=== PATIENT | male | born 1975 | race Caucasian/White ===

== ENCOUNTER 2016-08-11 11:21 | Inpatient (IN) | payer OTHER ==
[~2016-08-11] VITALS: Ht 177.8 cm; Wt 85.5 kg
[~2016-08-11 11:21] MED LIST: Azithromycin PO; CLN150C PO
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
[2016-08-11] MEDS ORDERED: LIDOCAINE 2% 20 ML (XYLOCAINE) VIAL ONE (11:39)
[2016-08-11] MEDS ORDERED: fentaNYL INJECTION 100 MCG/2 ML AMP IVP ONE (11:45)
[2016-08-11] MEDS ORDERED: IOHEXOL 350 MG/ML 100 ML (OMNIPAQUE 350) VIAL IV ONE (11:45)
[2016-08-11] MEDS ORDERED: DEXAMETHASONE PF 10 MG/ML (DECADRON) VIAL IV ONE (11:45)
[2016-08-11] MEDS ORDERED: NS 100 ML (IVPB) BAG IV ONE (11:45)
[2016-08-11] MEDS ORDERED: CLINDAMYCIN INJECTION 900 MG in NS (IVPB) 50 ML IV ONE (11:45)
[2016-08-11] MEDS ORDERED: LIDOCAINE/EPI 1%-1:100,000 (XYLOCAINE) 20ML INJ ONE (11:45)
[2016-08-11 11:46] LABS: BASOPHILS % (AUTO) 0 % (0-10); EOSINOPHILS % (AUTO) 0 % (0-10); LYMPHOCYTES # (AUTO) 1.9 X 10^3 (1.0-4.0); LYMPHOCYTES % (AUTO) 9 % (12-44); MEAN CORPUSCULAR HEMOGLOBIN 33 PG (25-34); MEAN CORPUSCULAR HGB CONC 35 G/DL (32-36); MEAN CORPUSCULAR VOLUME 94 FL (80-99); MEAN PLATELET VOLUME 10.6 FL (7.4-10.4); MONOCYTES # (AUTO) 1.5 X 10^3 (0.0-1.0); MONOCYTES % (AUTO) 7 % (0-12); NEUTROPHILS # (AUTO) 17.6 X 10^3 (1.8-7.8); NEUTROPHILS % (AUTO) 84 % (42-75); PLATELET COUNT 175 10^3/uL (130-400); RED BLOOD COUNT 5.16 10^6/uL (4.35-5.85); RED CELL DISTRIBUTION WIDTH 14.2 % (10.0-14.5); WHITE BLOOD COUNT 21.1 10^3/uL (4.3-11.0)
[2016-08-11 12:04] LABS: ANION GAP 13 MMOL/L (5-14); BLOOD UREA NITROGEN 7 MG/DL (7-18); BUN/CREATININE RATIO 9; CARBON DIOXIDE 20 MMOL/L (21-32); CHLORIDE 105 MMOL/L (98-107); CREATININE SERUM 0.81 MG/DL (0.60-1.30); GFR ESTIMATED > 60; GLUCOSE 170 MG/DL (70-105); POTASSIUM 3.5 MMOL/L (3.6-5.0); SODIUM 138 MMOL/L (135-145)
[2016-08-11 12:09] LABS: BASOPHILS % (MANUAL) 1 %; LYMPHOCYTES % (MANUAL) 2 %; NEUTROPHILS % (MANUAL) 89 %
--- NOTE | 2016-08-11 12:31 | Diagnostic Imaging Report ---
PROCEDURE: CT neck soft tissue with contrast. TECHNIQUE: Multiple contiguous axial images were obtained through the neck after the administration of contrast. INDICATION: Right jaw swelling. Difficulty breathing. CONTRAST: 75 mL of Omnipaque 350 is administered intravenously. FINDINGS: There is a significant enhancement and soft tissue swelling in the right tonsils and peritonsillar area obliterating the normal fat in the right paravertebral space and is associated with extensive inflammatory changes extending to the surrounding tissues including the superficial tissues around the right jaw. The findings are associated with the lucencies around multiple teeth bilaterally but appear to be worse along the molar lower teeth on the right side. In the central aspect of the right peritonsillar abnormality, there is a 3 x 1.7 x 3.4 cm hypodense area with irregular margins, however without a walled off enhancing surrounding tissue seen. This is suggestive of early abscess formation within the phlegmon. The mass effect from the right peritonsillar process narrows the oropharynx and displaces it to the left. Also the inflammation extends to and obliterates the right pyriformis sinus. There is displacement of the larynx and hypopharynx to the left due to the inflammatory process extending to the lower aspect of the neck as well. There is a 2 x 1.5 x 2 cm fluid collection area that appears to be based on the skin as well in the lateral aspect of the neck on the right side just above the hyoid bone level. This may relate to a sebaceous cyst. The surrounding inflammation could be from the process in the peritonsillar region or related to infection in it. Correlate clinically. The thyroid gland is normal. There are minimally prominent reactive lymph nodes along the upper right cervical chain. The parotid and submandibular glands and the thyroid gland appear grossly unremarkable. There are prominent emphysematous changes in the lung apices. The visualized portions of the paranasal sinuses demonstrate mild mucosal thickening in the right maxillary sinus and mucosal thickening also of mild degree in the ethmoidal air cells seen. IMPRESSION: 1. There is a very large area of inflammation and swelling centered in the right peritonsillar region with central hypodensity suggestive of a phlegmon with early stage of abscess formation. There is overall significant mass effect. 2. Poor dentition with multiple teeth erosions are seen, possibly representing the source of the infection. 3. A 2 cm subcutaneous fluid distended lesion along the lateral aspect of the right side of the neck, may relate to a sebaceous cyst. 4. Prominent emphysema changes in the lung apices. Dictated by: Dictated on workstation # [id number]
[2016-08-11] MEDS ORDERED: CEFUROXIME INJECTION 1,500 MG in NS (IVPB) 50 ML IV ONE (13:00)
[2016-08-11] MEDS ORDERED: CATHETER FLUSH 10 ML SYR IV PRN (14:30)
[2016-08-11] MEDS ORDERED: fentaNYL INJECTION 100 MCG/2 ML AMP IV PRN (14:30)
[2016-08-11] MEDS ORDERED: IBUP-2055 PO (14:31)
[2016-08-11 15:04] VITALS: BP 137/93
[2016-08-11] MEDS: NS IV 1000 ML 1,000 ML IV SCH (15:06)
[2016-08-11] MEDS: NICOTINE 21 MG (NICODERM) PATCH TD SCH (15:06)
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
[2016-08-11 17:02] VITALS: BP 150/89
[2016-08-11] MEDS: DEXAMETHASONE PF 10 MG/ML (DECADRON) VIAL IV SCH (18:43)
[2016-08-11 20:35] VITALS: BP 146/95
[2016-08-11] MEDS: CEFUROXIME 1.5 GM/NS 50 ML IVPB IV SCH ×2 (22:26)
[2016-08-11] MEDS: CLINDAMYCIN 900 MG/NS 50 ML IVPB IV SCH ×2 (22:59)
[2016-08-12] VITALS (7 sets, daily range): BP systolic 136–155; BP diastolic 79–96
[2016-08-12] MEDS: DEXAMETHASONE PF 10 MG/ML (DECADRON) VIAL IV SCH ×2 (00:20→07:03)
[2016-08-12] MEDS: NS IV 1000 ML 1,000 ML IV SCH ×3 (00:21→17:42)
[2016-08-12 04:27] LABS: BASOPHILS % (AUTO) 0 % (0-10); EOSINOPHILS % (AUTO) 0 % (0-10); LYMPHOCYTES # (AUTO) 0.9 X 10^3 (1.0-4.0); LYMPHOCYTES % (AUTO) 5 % (12-44); MEAN CORPUSCULAR HEMOGLOBIN 33 PG (25-34); MEAN CORPUSCULAR HGB CONC 35 G/DL (32-36); MEAN CORPUSCULAR VOLUME 94 FL (80-99); MEAN PLATELET VOLUME 10.7 FL (7.4-10.4); MONOCYTES # (AUTO) 0.4 X 10^3 (0.0-1.0); MONOCYTES % (AUTO) 2 % (0-12); NEUTROPHILS # (AUTO) 18.2 X 10^3 (1.8-7.8); NEUTROPHILS % (AUTO) 93 % (42-75); PLATELET COUNT 181 10^3/uL (130-400); RED BLOOD COUNT 4.91 10^6/uL (4.35-5.85); RED CELL DISTRIBUTION WIDTH 14.3 % (10.0-14.5); WHITE BLOOD COUNT 19.5 10^3/uL (4.3-11.0)
[2016-08-12] MEDS: CLINDAMYCIN 900 MG/NS 50 ML IVPB IV SCH ×6 (06:35→21:59)
[2016-08-12] MEDS: CEFUROXIME 1.5 GM/NS 50 ML IVPB IV SCH ×6 (07:03→23:51)
--- NOTE | 2016-08-12 07:03 | Progress Note-Standard ---
Standard Progress Note Progress Notes/Assess & Plan Date Seen by Provider: Aug 12, 2016 Time Seen by Provider: 07:00 Progress/Assessment & Plan ENT-Sudhakar Doing better Able to open his mouth better and less pain on right wants to go home so he can go back to work wbc-19.5 which is down alittle from 21.1 x-ray reviewed-large area mostly phlegmon yesterday-it could develop into a drainable abscess OP-minimal trismus this am right neck-less swollen and nontender this am IMP Right Peritonsillar abscess Right neck andenopathy -improved Rec: 1. would be best to have at least 24 more hours of IV antibitoics and steroids before going home 2. t here is a chance he may need to havae the area opened up again once more abscess matures 3. dieet as mary today 4. I did leavae prescriptions in chart for ceftin and prednisione taper in case he decides to leave [place] at least he will have prescriptions 5. will follow up in am Final Diagnosis right peritonsillar abscess KWADWO GAUTHIER MD Aug 12, 2016 7:03 am
[2016-08-12] MEDS: NICOTINE 21 MG (NICODERM) PATCH TD SCH ×2 (09:25→09:36)
[2016-08-12] MEDS: NICOTINE PATCH REMOVAL TP SCH (09:36)
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
[2016-08-12] MEDS: BENZOCAINE 20% SPRAY (HURRICANE) 60 ML CAN MT PRN ×2 (12:54→15:50)
[2016-08-12] MEDS: DEXAMETHASONE 4 MG/ML SDV (DECADRON) IV SCH ×2 (14:39→21:58)
[2016-08-13] VITALS: BP 145/82
[2016-08-13] MEDS: NS IV 1000 ML 1,000 ML IV SCH ×2 (02:47→08:48)
--- NOTE | 2016-08-13 06:27 | Progress Note-Standard ---
Standard Progress Note Progress Notes/Assess & Plan Date Seen by Provider: Aug 13, 2016 Time Seen by Provider: 06:15 Progress/Assessment & Plan ENT-Sudhakar Doing better Able to open his mouth better and less pain on right wants to go home so he can go back to work wbc-19.5 which is down alittle from 21.1 x-ray reviewed-large area mostly phlegmon yesterday-it could develop into a drainable abscess OP-minimal trismus this am right neck-less swollen and nontender this am IMP Right Peritonsillar abscess Right neck andenopathy -improved Rec: 1. would be best to have at least 24 more hours of IV antibitoics and steroids before going home 2. t here is a chance he may need to havae the area opened up again once more abscess matures 3. dieet as mary today 4. I did leavae prescriptions in chart for ceftin and prednisione taper in case he decides to leave [facility] at least he will have prescriptions 5. will follow up in am 7/5-Arshad Doing much better this am less pain and less swelling op-no trismus right tonsillar region still mildly swollen but much improved no pus to drain at this time Fine to send home from my standpint I left rx's in chart for ceftin and pred taper as well as a note for work [id number] retrun if symptoms bounce back KWADWO ARSHAD MD Aug 13, 2016 6:27 am
[2016-08-13] MEDS: CLINDAMYCIN 900 MG/NS 50 ML IVPB IV SCH ×2 (06:49)
[2016-08-13] MEDS: DEXAMETHASONE 4 MG/ML SDV (DECADRON) IV SCH (06:49)
[2016-08-13] MEDS: CEFUROXIME 1.5 GM/NS 50 ML IVPB IV SCH ×2 (07:31)
[2016-08-13 08:04] VITALS: BP 138/85
[2016-08-13] MEDS: NICOTINE 21 MG (NICODERM) PATCH TD SCH (08:50)
[2016-08-13] MEDS: NICOTINE PATCH REMOVAL TP SCH (08:50)
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
[2016-08-13] MEDS ORDERED: HYDR-3812 PO (11:01)
[2016-08-13] MEDS ORDERED: PRED10TA22 PO (11:01)
[2016-08-13] MEDS ORDERED: CEFU250T80 PO (11:01)
== END 2016-08-13 11:35 | disposition home or self-care (01) | DRG 134 ==
LOC: EDUNIT# 11:21 → ER 11:24 → 4TH 12:56
PROVIDERS: ADMIT Internal Medicine; ATTEND Internal Medicine
PROC: 0C9PXZZ Drainage of Tonsils, External Approach (ICD-10-PCS; principal; 2016-08-11)
DX: J36 Peritonsillar abscess (principal); R59.0 Localized enlarged lymph nodes; K02.9 Dental caries, unspecified; F17.210 Nicotine dependence, cigarettes, uncomplicated; K21.9 Gastro-esophageal reflux disease without esophagitis; F32.9 Major depressive disorder, single episode, unspecified
CPT/HCPCS: 36415; 70491; 80048; 83605; 85007; 85025; 85027; 87040; 87070; 87205; 96365; 96375

== ENCOUNTER 2017-07-06 11:58 | Emergency (ER) | payer SELFPAY ==
[~2017-07-06] VITALS: Ht 175.3 cm; Wt 81.8 kg
[~2017-07-06 11:58] MED LIST changes: +ACHD5005 PO; +CEFU250T80 PO; +IBUP-2055 PO; +PRED10TA22 PO
[2017-07-06] MEDS ORDERED: KETOROLAC 60 MG/2 ML VIAL IM STA (12:54)
[2017-07-06] MEDS ORDERED: ORPHENADRINE 60 MG/2 ML (NORFLEX) AMP IM STA (12:54)
--- NOTE | 2017-07-06 13:24 | Diagnostic Imaging Report ---
PROCEDURE: CT lumbar spine without contrast. TECHNIQUE: Multiple contiguous axial images were obtained through the lumbar spine without the use of intravenous contrast. Sagittal and coronal reformations were then performed. INDICATION: Back pain. There are no previous CT examinations available for comparison. The plain film examination of the lumbar spine performed on 01/31/2013 failed to show any sign of an acute abnormality. FINDINGS: The parasagittal images show the vertebral body heights and alignment to be within normal limits and similar to the prior plain film exam. The intervertebral spaces are well-maintained. There is a disc bulge eccentric to the left at L4-5. The disc indents the left ventral aspect of the thecal sac and narrows the AP diameter to 9.7 mm. The disc is in proximity to the origin of the exiting left nerve root. There is also a disc bulge eccentric to the left at L5-S1. There is no evidence for central stenosis at this level but the disc material does narrow the posterolateral recess on the left at L5-S1. The remainder of the lumbar spine is unremarkable for a high-grade central stenosis. There is no sign of a fracture or of a destructive lesion. There is no paraspinal mass identified. IMPRESSION: 1. There is no evidence for an acute bony abnormality. 2. There is degenerative disc disease at L4-5 and L5-S1. There is borderline central stenosis at L4-5 and the disc material is in proximity to the origin of the exiting left nerve root. There is no evidence for central stenosis at L5-S1 but there is narrowing of the neural foramen on the left due to the disc bulge. If further imaging is desired, then MRI would be recommended. Dictated by: Dictated on workstation # [id number]
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
[2017-07-06] MEDS ORDERED: ACHD5005 PO (13:37)
[2017-07-06] MEDS ORDERED: CYCL10TA9 PO (13:37)
[2017-07-06] MEDS ORDERED: PRD20T PO (13:37)
[2017-07-06 13:47] VITALS: BP 144/90
== END 2017-07-06 13:47 | disposition home or self-care (01) ==
LOC: EDUNIT# 11:58 → ER 12:00
DX: M54.16 Radiculopathy, lumbar region (principal); F32.9 Major depressive disorder, single episode, unspecified; J42 Unspecified chronic bronchitis; K21.9 Gastro-esophageal reflux disease without esophagitis; F12.90 Cannabis use, unspecified, uncomplicated; Z86.19 Personal history of other infectious and parasitic diseases; Z87.81 Personal history of (healed) traumatic fracture; Z79.52 Long term (current) use of systemic steroids; Z88.0 Allergy status to penicillin
CPT/HCPCS: 72131; 96372

== ENCOUNTER 2017-10-26 23:44 | Emergency (ER) | payer SELFPAY ==
[~2017-10-26] VITALS: Ht 172.7 cm; Wt 83.9 kg
[~2017-10-26 23:44] MED LIST changes: +CYCL10TA9 PO; +PRD20T PO
[2017-10-27] MEDS ORDERED: fentaNYL INJECTION 100 MCG/2 ML AMP IVP STA (01:05)
[2017-10-27] MEDS ORDERED: NS IV 1000 ML 1,000 ML IV STA (01:05)
[2017-10-27] MEDS ORDERED: KETOROLAC 30 MG/ML VIAL IVP STA (01:05)
[2017-10-27] MEDS ORDERED: ONDANSETRON 4 MG/2 ML (SDV) Z0FRAN IVP ONE (01:15)
[2017-10-27 01:20] LABS: BASOPHILS # (AUTO) 0.1 10^3/uL (0.0-0.1); BASOPHILS % (AUTO) 0 % (0-10); EOSINOPHILS # (AUTO) 0.6 10^3/uL (0.0-0.3); EOSINOPHILS % (AUTO) 3 % (0-10); HEMATOCRIT 45 % (40-54); HEMOGLOBIN 16.8 G/DL (13.3-17.7); LYMPHOCYTES # (AUTO) 1.8 X 10^3 (1.0-4.0); LYMPHOCYTES % (AUTO) 9 % (12-44); MEAN CORPUSCULAR HEMOGLOBIN 35 PG (25-34); MEAN CORPUSCULAR HGB CONC 37 G/DL (32-36); MEAN CORPUSCULAR VOLUME 94 FL (80-99); MEAN PLATELET VOLUME 10.3 FL (7.4-10.4); MONOCYTES % (AUTO) 5 % (0-12); NEUTROPHILS % (AUTO) 83 % (42-75); PLATELET COUNT 187 10^3/uL (130-400); RED BLOOD COUNT 4.79 10^6/uL (4.35-5.85); RED CELL DISTRIBUTION WIDTH 13.2 % (10.0-14.5); WHITE BLOOD COUNT 19.5 10^3/uL (4.3-11.0)
[2017-10-27 01:30] LABS: BILIRUBIN,URINE 1+ (NEGATIVE); CLARITY,URINE VERY CLOUDY; COLOR,URINE RED; GLUCOSE, URINE (UA) NEGATIVE (NEGATIVE); KETONES,URINE 1+ (NEGATIVE); LEUKOCYTE ESTERASE ,URINE 1+ (NEGATIVE); NITRITE,URINE NEGATIVE (NEGATIVE); PH,URINE 5 (5-9); PROTEIN,URINE 3+ (NEGATIVE); UROBILINOGEN,URINE 4 MG/DL (NORMAL)
[2017-10-27 01:36] LABS: BACTERIA,URINE LARGE /HPF; WBC,URINE 0-2 /HPF
[2017-10-27 01:37] LABS: AMORPHOUS SEDIMENT,UR MOD AMOR URATES /LPF; CALCIUM OXALATE CRYSTALS,UR FEW /LPF; SQUAMOUS EPITHELIAL CELL,UR RARE /HPF
[2017-10-27 01:41] LABS: ALANINE AMINOTRANSFERASE 18 U/L (0-55); ALBUMIN 4.2 GM/DL (3.2-4.5); ALKALINE PHOSPHATASE 89 U/L (40-136); BILIRUBIN,TOTAL 0.4 MG/DL (0.1-1.0); BUN/CREATININE RATIO 7; CALCIUM 8.9 MG/DL (8.5-10.1); CARBON DIOXIDE 21 MMOL/L (21-32); CHLORIDE 106 MMOL/L (98-107); CREATININE SERUM 1.07 MG/DL (0.60-1.30); GFR ESTIMATED > 60; GLUCOSE 135 MG/DL (70-105); POTASSIUM 3.7 MMOL/L (3.6-5.0); SODIUM 140 MMOL/L (135-145); TOTAL PROTEIN 6.9 GM/DL (6.4-8.2)
[2017-10-27 01:46] LABS: BAND NEUTROPHILS 0 %; EOSINOPHILS % (MANUAL) 3 %; LYMPHOCYTES % (MANUAL) 10 %; MONOCYTES % (MANUAL) 2 %; NEUTROPHILS % (MANUAL) 83 %
[2017-10-27 01:47] LABS: BASOPHILS % (MANUAL) 0 %; RBC MORPH NORMAL; REACTIVE LYMPHOCYTES 2 %
[2017-10-27] MEDS ORDERED: CEPHALEXIN 250 MG (KEFLEX) CAP PO STA (02:20)
[2017-10-27] MEDS ORDERED: RX-HYDROCODONE/APAP 5/325 MG #4 TAB PK PO PRN (02:30)
--- NOTE | 2017-10-27 02:31 | ED GU-Male ---
General Chief Complaint: -Male Stated Complaint: ABD PAIN,TESTICULAR PAIN Nursing Triage Note: Pt c/o chills, L lower abdominal pain, and L testicular swelling that began at approximatley 2130 last night. Pt c/o hematuria and vomiting. Source: patient Exam Limitations: no limitations History of Present Illness Date Seen by Provider: Oct 27, 2017 Time Seen by Provider: 01:00 Initial Comments Here with acute onset of left lower abdominal pain with pain radiating to the left testicle. This began at about 930 p.m. last night and has progressed since. He reports urinating blood. He has had nausea and vomiting with the pain. He is unable to get comfortable. Timing/Duration: yesterday, getting worse Severity/Quality: moderate, severe, sharp, stabbing Location: left flank Radiation: left flank, scrotal Activities at Onset: none Prior Genitourinary Problems: none Associated Symptoms: abdominal pain, dysuria; No fever/chills, No lower back pain; nausea/vomiting, urinary frequency Allergies and Home Medications Allergies Coded Allergies: Penicillins (Unverified Allergy, Unknown, 05/04/13) Home Medications Cefuroxime Axetil 250 Mg Tablet, 250 MG PO BID Prescribed by: SHIRA KAISER on 08/13/16 110 Cyclobenzaprine HCl 10 Mg Tablet, 10 MG PO TID PRN for SPASMS Prescribed by: MEGHAN AREVALO on 07/06/17 1337 Hydrocodone Bit/Acetaminophen 1 Each Tablet, 1 EACH PO Q6H PRN for PAIN Prescribed by: SHIRA KAISER on 08/13/16 1101 Hydrocodone Bit/Acetaminophen 1 Tab Tab, 1 EACH PO Q4H PRN for PAIN Prescribed by: MEGHAN AREVALO on 07/06/17 1337 Ibuprofen 200 Mg Tablet, 600 MG PO DAILY PRN for PAIN-MILD, (Reported) TAKES 3 (200 MG) TABLETS Prednisone 10 Mg Tab.ds.pk, 30 MG PO DAILY Take 3 pills once daily for 3 days then 2 pills once daily for 3 days then 1 pill daily for 3 days Prescribed by: SHIRA KAISER on 08/13/16 110 Prednisone 20 Mg Tab, 60 MG PO DAILY take 3 tablets once daily for 3 days, then take 2 tablets once daily for 3 days, then 1 tablet once daily for 3 days. Prescribed by: MEGHAN AREVALO on 07/06/17 1337 Patient Home Medication List Home Medication List Reviewed: Yes Review of Systems Review of Systems Constitutional: see HPI; No chills, No fever Respiratory: no symptoms reported Cardiovascular: no symptoms reported Gastrointestinal: abdominal pain, nausea, vomiting Genitourinary: dysuria, flank pain, hematuria, pain, urgency Musculoskeletal: no symptoms reported Skin: no symptoms reported Psychiatric/Neurological: No Symptoms Reported Past Sbpishd-Cngzwi-Onpnfi Hx Past Med/Social Hx: Reviewed Nursing Past Med/Soc Hx Patient Social History Alcohol Use: Occasionally Uses Recreational Drug Use: No Drug of Choice: thc Smoking Status: Current Everyday Smoker Type Used: Cigarettes Recent Foreign Travel: No Contact w/Someone Who Travel: No Recent Infectious Disease Expo: No Immunizations Up To Date Tetanus Booster (TDap): Unknown Seasonal Allergies Seasonal Allergies: No Past Medical History Surgeries: No Respiratory: Yes Chronic Bronchitis Currently Using CPAP: No Currently Using BIPAP: No Cardiac: Yes Neurological: No Reproductive Disorders: No Genitourinary: No Gastrointestinal: Yes Gastroesophageal Reflux Musculoskeletal: Yes (BACK INJURY & BILATERAL CLAVICLE FXS IN 5TH GRADE-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 7.0oz. 83.722587gn; 27.0 BMI Method:Stated General Appearance: WD/WN, mild distress HEENT: PERRL/EOMI, pharynx normal Neck: full range of motion, supple Cardiovascular: regular rate, rhythm, no murmur Respiratory: lungs clear, normal breath sounds Gastrointestinal: non tender, soft Male: normal genitalia, no hernia; No testicular tenderness Back: No CVA tenderness (R); CVA tenderness (L) Extremities: non-tender, normal inspection Neurologic/Psychiatric: alert, oriented x 3 Skin: normal color, warm/dry Progress/Results/Core Measures Suspected Sepsis Recent Fever Within 48 Hours: No Infection Criteria Present: None New/Unexplained Altered Menta: No Sepsis Screen: No Definite Risk SIRS Temperature:98.7 Pulse: 79 Respiratory Rate: 17 Laboratory Tests 10/27/17 01:06: White Blood Count 19.5H Blood Pressure 159 /111 Mean: 127 Laboratory Tests 10/27/17 01:06: Creatinine 1.07, Platelet Count 187, Total Bilirubin 0.4 Results/Orders Lab Results Laboratory Tests Test 10/27/17 00:30 10/27/17 01:06 Range/Units Urine Color RED H Urine Clarity VERY CLOUDY H Urine pH 5 5-9 Urine Specific [place] 1.030 H 1.016-1.022 Urine Protein 3+ H NEGATIVE Urine Glucose (UA) NEGATIVE NEGATIVE Urine Ketones 1+ H NEGATIVE Urine Nitrite NEGATIVE NEGATIVE Urine Bilirubin 1+ H NEGATIVE Urine Urobilinogen 4 H NORMAL MG/DL Urine Leukocyte Esterase 1+ H NEGATIVE Urine RBC (Auto) 5+ H NEGATIVE Urine RBC 2-5 H /HPF Urine WBC 0-2 /HPF Urine Squamous Epithelial Cells RARE /HPF Urine Crystals PRESENT H /LPF Urine Calcium Oxalate Crystals FEW H /LPF Urine Amorphous Sediment MOD ZACHARIAH URATES H /LPF Urine Bacteria LARGE H /HPF Urine Casts NONE /LPF Urine Mucus SMALL H /LPF Urine Culture Indicated YES White Blood Count 19.5 H 4.3-11.0 10^3/uL Red Blood Count 4.79 4.35-5.85 10^6/uL Hemoglobin 16.8 13.3-17.7 G/DL Hematocrit 45 40-54 % Mean Corpuscular Volume 94 80-99 FL Mean Corpuscular Hemoglobin 35 H 25-34 PG Mean Corpuscular Hemoglobin Concent 37 H 32-36 G/DL Red Cell Distribution Width 13.2 10.0-14.5 % Platelet Count 187 130-400 10^3/uL Mean Platelet Volume 10.3 7.4-10.4 FL Neutrophils (%) (Auto) 83 H 42-75 % Lymphocytes (%) (Auto) 9 L 12-44 % Monocytes (%) (Auto) 5 0-12 % Eosinophils (%) (Auto) 3 0-10 % Basophils (%) (Auto) 0 0-10 % Neutrophils # (Auto) 16.0 H 1.8-7.8 X 10^3 Lymphocytes # (Auto) 1.8 1.0-4.0 X 10^3 Monocytes # (Auto) 1.0 0.0-1.0 X 10^3 Eosinophils # (Auto) 0.6 H 0.0-0.3 10^3/uL Basophils # (Auto) 0.1 0.0-0.1 10^3/uL Neutrophils % (Manual) 83 % Lymphocytes % (Manual) 10 % Monocytes % (Manual) 2 % Eosinophils % (Manual) 3 % Basophils % (Manual) 0 % Band Neutrophils 0 % Reactive Lymphocytes 2 % Blood Morphology Comment NORMAL Sodium Level 140 135-145 MMOL/L Potassium Level 3.7 3.6-5.0 MMOL/L Chloride Level 106 98-107 MMOL/L Carbon Dioxide Level 21 21-32 MMOL/L Anion Gap 13 5-14 MMOL/L Blood Urea Nitrogen 7 7-18 MG/DL Creatinine 1.07 0.60-1.30 MG/DL Estimat Glomerular Filtration Rate > 60 BUN/Creatinine Ratio 7 Glucose Level 135 H 70-105 MG/DL Calcium Level 8.9 8.5-10.1 MG/DL Corrected Calcium 8.7 8.5-10.1 MG/DL Total Bilirubin 0.4 0.1-1.0 MG/DL Aspartate Amino Transf (AST/SGOT) 20 5-34 U/L Alanine Aminotransferase (ALT/SGPT) 18 0-55 U/L Alkaline Phosphatase 89 40-136 U/L Total Protein 6.9 6.4-8.2 GM/DL Albumin 4.2 3.2-4.5 GM/DL My Orders Orders - JUNI FELDMAN MD Cbc With Automated Diff (10/27/17 01:05) Comprehensive Metabolic Panel (10/27/17 01:05) Ua Culture If Indicated (10/27/17 01:05) Ct Abd/Pelvis Wo(Kidney Stone) (10/27/17 01:05) Fentanyl Injection (Sublimaze Injection (10/27/17 01:05) Ketorolac Injection (Toradol Injection) (10/27/17 01:05) Ondansetron Injection (Zofran Injectio (10/27/17 01:15) Ns Iv 1000 Ml (Sodium Chloride 0.9%) (10/27/17 01:05) Manual Differential (10/27/17 01:06) Urine Culture (10/27/17 00:30) Cephalexin Capsule (Keflex Capsule) (10/27/17 02:20) Rx-Hydrocodone/Apap 5-325 Mg (Rx-Vicodin (10/27/17 02:30) Medications Given in ED Current Medications Medications Dose Ordered Sig/Enedina Route Start Time Stop Time Status Last Admin Dose Admin Ondansetron HCl 4 mg ONCE ONCE IVP 10/27/17 01:15 10/27/17 01:16 DC 10/27/17 01:34 4 MG Vital Signs/I&O 10/27/17 00:54 Temp 98.7 Pulse 79 Resp 17 B/P (MAP) 159/111 (127) Pulse Ox 95 O2 Delivery Room Air Capillary Refill : Less Than 3 Seconds Blood Pressure Mean: 127 Progress Note : Progress Note Seen and evaluated. IV, labs and UA ordered. Normal saline 1 L bolus. Fentanyl 50 g IV, Toradol 30 mg IV and Zofran 4 mg IV ordered. Monitor patient. 0230: Pain is improved. CT does show 3 mm stone in the left UVJ. Keflex 500 mg by mouth given. We will send home hydrocodone 5/325 go pack. Discharged home with return precautions. Patient verbalize understanding instructions and agreement with plan. Diagnostic Imaging Diagonstic Imaging: CT Plain Films/CT/US/NM/MRI: abdomen, pelvis Comments Mild left hydroureter nephrosis extending to a 3 mm calcification in the distal left ureter adjacent to the UVJ. Reviewed: Reviewed Night [facility] Study Departure Impression Primary Impression: Ureterolithiasis Additional Impression: Urinary tract infection Qualified Codes: N30.01 - Acute cystitis with hematuria Disposition: HOME, SELF-CARE Condition: Improved Departure-Patient Inst. Decision time for Depature: 02:35 Referrals: NO,LOCAL PHYSICIAN (PCP) Primary Care Physician AGA SKINNER MD Patient Instructions: Kidney Stones (DC), Urinary Tract Infection, Adult (DC) Add. Discharge Instructions: All discharge instructions reviewed with patient and/or family. Voiced understanding. Drink plenty of fluids. You may take ibuprofen 800 mg every 8 hours as needed for pain. Follow-up with your DrSoren in a few days for recheck. Return for worse pain, fever, vomiting, weakness, breathing problems or other concerns as needed. If you're not getting some improvement over the next couple days, you should follow-up with the urologist listed or of your choosing. You should strain all urine until stone is noted. Scripts Hydrocodone Bit/Acetaminophen (Hydrocodone/Acetaminophen 5/325mg Tablet) 1 Tab Tab 1 EACH PO Q4H PRN for PAIN-MODERATE MDD 10, #10 TAB 0 Refills Prov: JUNI FELDMAN MD 10/27/17 Cephalexin (Cephalexin) 500 Mg Tablet 500 MG PO BID, #14 TAB 0 Refills Prov: JUNI FELDMAN MD 10/27/17 JUNI FELDMAN MD Oct 27, 2017 02:31
[2017-10-27] MEDS ORDERED: CEPH500T PO (02:37)
[2017-10-27] MEDS ORDERED: ACHD5005 PO (02:37)
[2017-10-27 02:40] VITALS: BP 119/83
--- NOTE | 2017-10-27 07:03 | Diagnostic Imaging Report ---
PROCEDURE: CT urinary tract, rule out kidney stone. TECHNIQUE: Multiple contiguous axial images were obtained through the abdomen and pelvis without the use of intravenous contrast. INDICATION: Left lower quadrant pain for one day. COMPARISON: None FINDINGS: The lung bases are clear. The heart is normal in size. The liver appears normal. The pancreas, adrenal glands, and spleen are unremarkable. The right kidney appears normal. The left kidney demonstrates mild perirenal stranding with minimal hydronephrosis and hydroureter. There is a 3 mm calculus at the distal left ureter near the ureterovesicular junction. The urinary bladder wall appears thickened, although it is decompressed. The bowel loops are nondistended without evidence of obstruction. No evidence of appendicitis is seen. No acute osseous abnormality is seen. There appear to be bilateral hydroceles, although incompletely included. IMPRESSION: 1. Obstructing 3 mm calculus at the distal left ureter near the ureterovesicular junction with minimal left hydroureteronephrosis. 2. Urinary bladder wall thickening, most likely due to mild distention, although recommend correlation with urinalysis. 3. Likely bilateral hydroceles, although incompletely included on this exam. Dictated by: Dictated on workstation # [id number]
== END 2017-10-27 02:45 | disposition home or self-care (01) ==
LOC: EDUNIT# 23:44 → ER 23:45
DX: N13.6 Pyonephrosis (principal); K21.9 Gastro-esophageal reflux disease without esophagitis; F32.9 Major depressive disorder, single episode, unspecified; F17.210 Nicotine dependence, cigarettes, uncomplicated; Z88.0 Allergy status to penicillin; Z79.52 Long term (current) use of systemic steroids
CPT/HCPCS: 36415; 74176; 80053; 81000; 85007; 85027; 87088; 96361; 96374; 96375

== ENCOUNTER 2018-03-21 15:04 | Emergency (ER) | payer SELFPAY ==
[~2018-03-21] VITALS: Ht 172.7 cm; Wt 83.9 kg
[2018-03-21] MEDS: CLINDAMYCIN 900 MG/50 ML IVPB 50 ML IV ONE ×2 (14:05→16:20)
[~2018-03-21 15:04] MED LIST changes: +CEPH500T PO
--- OUTSIDE RECORDS SUMMARY | 2018-03-21 15:09 | XMS REPORT ---
Author Author AGUEDA BURRIS Organization [facility] Address [address] [place] [address] Care Team Providers Care Outside Cutter Name Role Phone AGUEDA BURRIS Unavailable PROBLEMS Type Condition ICD9-CM Code [id number] Code Onset Dates Condition Status SNOMED Code Problem Elevated blood pressure reading R03.0 Active 05258321 Problem Spinal stenosis of lumbar region, unspecified whether neurogenic claudication present M48.061 Active 32082952 ALLERGIES Substance Reaction Event Type Date Status Penicillin V Potassium Unknown Drug Allergy Jul, Active ENCOUNTERS Encounter Location Date Diagnosis [facility] [address] [facility] [id number] [address] Jul, Spinal stenosis of lumbar region, unspecified whether neurogenic claudication present M48.061 and Elevated blood pressure reading R03.0 IMMUNIZATIONS No Known Immunizations SOCIAL HISTORY Never Assessed REASON FOR VISIT Establish [facility]-[place]. [employer], wants a return back to work note PLAN OF CARE Activity Details Follow Up 4 Weeks Reason:BP check VITAL SIGNS Weight 190.4 lbs 2017-07-21 Temperature 98.7 degrees Fahrenheit 2017-07-21 Heart Rate 88 bpm 2017-07-21 Respiratory Rate 22 2017-07-21 Blood pressure systolic 128 mmHg 2017-07-21 Blood pressure diastolic 100 mmHg 2017-07-21 MEDICATIONS Medication Instructions Dosage Frequency Start Date End Date Duration Status Cyclobenzaprine HCl 10 MG Orally Three times a day 1 tablet as needed 8h Active Hydrocodone-Acetaminophen 5-325 MG Orally every 6 hrs 1 tablet as needed 6h Active RESULTS No Results PROCEDURES No Known procedures INSTRUCTIONS MEDICATIONS ADMINISTERED No Known Medications MEDICAL (GENERAL) HISTORY Type Description Date Medical History spinal stenosis Hospitalization History tonsils swollen 08/12/2016
--- OUTSIDE RECORDS SUMMARY | 2018-03-21 15:09 | XMS REPORT | Continuity of Care Document ---
Author Author [facility] Organization [facility] Address Unknown Phone Unavailable Allergies Active Description Code Type Severity Reaction Onset Reported/Identified Relationship to Patient Clinical Status Yes Penicillins [id number] Drug Allergy Unknown N/A 05/04/2013 Medications There is no data. 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 05/05/2013 JESSY KEY MD Ot 682.0 CELLULITIS OF FACE 05/05/2013 JESSY KEY MD Ot 784.0 HEADACHE 07/10/2014 GINNY WHITFIELD DO Ot 111.0 PITYRIASIS VERSICOLOR 07/10/2014 KATELYN WHITFIELD DOA K Ot 305.1 TOBACCO USE DISORDER 07/10/2014 KATELYN WHITFIELD DOA K Ot 305.20 CANNABIS ABUSE-UNSPEC 07/10/2014 KATELYN WHITFIELD DOA K Ot 305.70 AMPHETAMINE ABUSE-UNSPEC 07/10/2014 ROSEANN ROMAN, GINNY K Ot 401.9 HYPERTENSION NOS 07/10/2014 KATELYN WHITFIELD DOA K Ot 465.9 ACUTE URI NOS 07/10/2014 KATELYN WHITFIELD DOA K Ot 785.0 TACHYCARDIA NOS 07/10/2014 KATELYN WHITFIELD DOA K Ot 790.5 ABN SERUM ENZY LEVEL NEC 07/10/2014 KATELYN WHITFIELD DOA K Ot 799.02 HYPOXEMIA 07/10/2014 ORSEANN ROMAN GINNY K Ot 111.0 07/10/2014 ROSEANN ROMAN GINNY K Ot 305.1 07/10/2014 ROSEANN ROMAN GINNY K Ot 305.20 07/10/2014 ROSEANN ROMAN GINNY K Ot 305.70 07/10/2014 ROSEANN ROMAN GINNY K Ot 401.9 07/10/2014 KATELYN WHITFIELD DOA K Ot 465.9 07/10/2014 ROSEANN ROMAN GINNY K Ot 785.0 07/10/2014 GINNY WHITFIELD DO Ot 790.5 07/10/2014 GINNY WHITFIELD DO Ot 799.02 08/13/2016 MATTHEW PATTON MD Ot F17.210 NICOTINE DEPENDENCE, CIGARETTES, UNCOMPL 08/13/2016 MATTHEW PATTON MD Ot F32.9 MAJOR DEPRESSIVE DISORDER, SINGLE EPISOD 08/13/2016 MATTHEW PATTON MD Ot J36 PERITONSILLAR ABSCESS 08/13/2016 MATTHEW PATTON MD Ot K02.9 DENTAL CARIES, UNSPECIFIED 08/13/2016 MATTHEW PATTON MD Ot K21.9 GASTRO-ESOPHAGEAL REFLUX DISEASE WITHOUT 08/13/2016 MATTHEW PATTON MD Ot R59.0 LOCALIZED ENLARGED LYMPH NODES 07/08/2017 IRINA, MEGHAN L[employer] MACHINE TENDER Ot F12.90 CANNABIS USE, UNSPECIFIED, UNCOMPLICATED 07/08/2017 IRINA, MEGHAN [employer] MACHINE TENDER Ot F32.9 MAJOR DEPRESSIVE DISORDER, SINGLE EPISOD 07/08/2017 IRINA, MEGHAN [employer] MACHINE TENDER Ot J42 UNSPECIFIED CHRONIC BRONCHITIS 07/08/2017 IRINA MEGH[employer] MACHINE TENDER Ot K21.9 GASTRO-ESOPHAGEAL REFLUX DISEASE WITHOUT 07/08/2017 IRINA, MEGHAN [employer] MACHINE TENDER Ot M54.16 RADICULOPATHY, LUMBAR REGION 07/08/2017 IRINA ME[employer] M[employer]INE TENDER Ot M54.9 DORSALGIA, UNSPECIFIED 07/08/2017 IRINA [employer] M[employer] TENDER Ot Z79.52 SIGNALS OFFICER (CURRENT) USE OF SYSTEMIC STER 07/08/2017 IRINA, MEGHAN [employer] MACHINE TENDER Ot Z86.19 PERSONAL HISTORY OF OTHER INFECTIOUS AND 07/08/2017 IRINA, MEGHAN [employer] MACHINE TENDER Ot Z87.81 PERSONAL HISTORY OF (HEALED) TRAUMATIC F 07/08/2017 IRINA, MEGHAN [employer] MACHINE TENDER Ot Z88.0 ALLERGY STATUS TO PENICILLIN 07/14/2017 IRINA, MEGHAN [employer] MACHINE TENDER Ot F12.90 CANNABIS USE, UNSPECIFIED, UNCOMPLICATED 07/14/2017 IRINA, MEGHAN [employer] MACHINE TENDER Ot F32.9 MAJOR DEPRESSIVE DISORDER, SINGLE EPISOD 07/14/2017 IRINA, MEGHAN [employer] MACHINE TENDER Ot J42 UNSPECIFIED CHRONIC BRONCHITIS 07/14/2017 IRINA, MEGHAN [employer] MACHINE TENDER Ot K21.9 GASTRO-ESOPHAGEAL REFLUX DISEASE WITHOUT 07/14/2017 IRINA, MEGHAN [employer] MACHINE TENDER Ot M54.16 RADICULOPATHY, LUMBAR REGION 07/14/2017 IRINA, MEGHAN [employer] MACHINE TENDER Ot M54.9 DORSALGIA, UNSPECIFIED 07/14/2017 IRINA, MEGHAN OLIVIERP Ot Z79.52 SIGNALS OFFICER (CURRENT) USE OF SYSTEMIC STER 07/14/2017 MEGHAN AREVALOP Ot Z86.19 PERSONAL HISTORY OF OTHER INFECTIOUS AND 07/14/2017 MEGHAN AREVALOP Ot Z87.81 PERSONAL HISTORY OF (HEALED) TRAUMATIC F 07/14/2017 MEGHAN AREVALOP Ot Z88.0 ALLERGY STATUS TO PENICILLIN 10/27/2017 JUNI FELDMAN MD D Ot F17.210 NICOTINE DEPENDENCE, CIGARETTES, UNCOMPL 10/27/2017 JUNI FELDMAN MD Ot F32.9 MAJOR DEPRESSIVE DISORDER, SINGLE EPISOD 10/27/2017 JUNI FELDMAN MD Ot K21.9 GASTRO-ESOPHAGEAL REFLUX DISEASE WITHOUT 10/27/2017 JUNI FELDMAN MD D Ot N13.6 PYONEPHROSIS 10/27/2017 JUNI FELDMAN MD D Ot R10.32 LEFT LOWER QUADRANT PAIN 10/27/2017 JUNI FELDMAN MD Ot Z79.52 SIGNALS OFFICER (CURRENT) USE OF SYSTEMIC STER 10/27/2017 JUNI FELDMAN MD Ot Z88.0 ALLERGY STATUS TO PENICILLIN 10/28/2017 JUNI FELDMAN MD D Ot F17.210 NICOTINE DEPENDENCE, CIGARETTES, UNCOMPL 10/28/2017 JUNI FELDMAN MD Ot F32.9 MAJOR DEPRESSIVE DISORDER, SINGLE EPISOD 10/28/2017 JUNI FELDMAN MD D Ot K21.9 GASTRO-ESOPHAGEAL REFLUX DISEASE WITHOUT 10/28/2017 JUNI FELDMAN MD D Ot N13.6 PYONEPHROSIS 10/28/2017 JORDAN FELDMAN MDOTHY D Ot R10.32 LEFT LOWER QUADRANT PAIN 10/28/2017 JUNI FELDMAN MD D Ot Z79.52 SIGNALS OFFICER (CURRENT) USE OF SYSTEMIC STER 10/28/2017 JUNI FELDMAN MD D Ot Z88.0 ALLERGY STATUS TO PENICILLIN 11/01/2017 JUNI FELDMAN MD D Ot F17.210 NICOTINE DEPENDENCE, CIGARETTES, UNCOMPL 11/01/2017 JUNI FELDMAN MD Ot F32.9 MAJOR DEPRESSIVE DISORDER, SINGLE EPISOD 11/01/2017 JUNI FELDMAN MD Ot K21.9 GASTRO-ESOPHAGEAL REFLUX DISEASE WITHOUT 11/01/2017 JUNI FELDMAN MD, Ot N13.6 PYONEPHROSIS 11/01/2017 JUNI FELDMAN MD, Ot R10.32 LEFT LOWER QUADRANT PAIN 11/01/2017 JUNI FELDMAN MD, Ot Z79.52 SENIOR CARE (CURRENT) USE OF SYSTEMIC STER 11/01/2017 JUNI FELDMAN MD, Ot Z88.0 ALLERGY STATUS TO PENICILLIN Procedures Code Description Performed By Performed On [id number] DRAINAGE OF TONSILS, EXTERNAL APPROACH 08/11/2016 Results Test Result Range Complete blood count (CBC) with automated white blood cell (WBC) differential - 08/11/16 11:34 Blood leukocytes automated count (number/volume) 21.1 10*3/uL 4.3-11.0 Blood erythrocytes automated count (number/volume) 5.16 10*6/uL 4.35-5.85 Venous blood hemoglobin measurement (mass/volume) 16.9 g/dL 13.3-17.7 Blood hematocrit (volume fraction) 48 % 40-54 Automated erythrocyte mean corpuscular volume 94 [foz_us] 80-99 Automated erythrocyte mean corpuscular hemoglobin (mass per erythrocyte) 33 pg 25-34 Automated erythrocyte mean corpuscular hemoglobin concentration measurement ( mass/volume) 35 g/dL 32-36 Automated erythrocyte distribution width ratio 14.2 % 10.0-14.5 Automated blood platelet count (count/volume) 175 10*3/uL 130-400 Automated blood platelet mean volume measurement 10.6 [foz_us] 7.4-10.4 Automated blood neutrophils/100 leukocytes 84 % 42-75 Automated blood lymphocytes/100 leukocytes 9 % 12-44 Blood monocytes/100 leukocytes 7 % 0-12 Automated blood eosinophils/100 leukocytes 0 % 0-10 Automated blood basophils/100 leukocytes 0 % 0-10 Blood neutrophils automated count (number/volume) 17.6 10*3 1.8-7.8 Blood lymphocytes automated count (number/volume) 1.9 10*3 1.0-4.0 Blood monocytes automated count (number/volume) 1.5 10*3 0.0-1.0 Automated eosinophil count 0.0 10*3/uL 0.0-0.3 Automated blood basophil count (count/volume) 0.0 10*3/uL 0.0-0.1 Blood lactic acid measurement (moles/volume) - 08/11/16 11:34 Blood lactic acid measurement (moles/volume) 1.82 mmol/L 0.50-2.00 Whole blood basic metabolic panel - 08/11/16 11:34 Serum or plasma sodium measurement (moles/volume) 138 mmol/L 135-145 Serum or plasma potassium measurement (moles/volume) 3.5 mmol/L 3.6-5.0 Serum or plasma chloride measurement (moles/volume) 105 mmol/L 98-107 Carbon dioxide 20 mmol/L 21-32 Serum or plasma anion gap determination (moles/volume) 13 mmol/L 5-14 Serum or plasma urea nitrogen measurement (mass/volume) 7 mg/dL 7-18 Serum or plasma creatinine measurement (mass/volume) 0.81 mg/dL 0.60-1.30 Serum or plasma urea nitrogen/creatinine mass ratio 9 NRG Serum or plasma creatinine measurement with calculation of estimated glomerular filtration rate > NRG Serum or plasma glucose measurement (mass/volume) 170 mg/dL 70-105 Serum or plasma calcium measurement (mass/volume) 9.0 mg/dL 8.5-10.1 Blood manual differential performed detection - 08/11/16 11:34 Blood monocytes/100 leukocytes 8 % NRG Manual blood segmented neutrophils/100 leukocytes 89 % NRG Manual blood lymphocytes/100 leukocytes 2 % NRG Manual blood basophils/100 leukocytes 1 % NRG Blood erythrocyte morphology finding identification NORMAL NRG Bacterial blood culture - 08/11/16 11:34 Bacterial blood culture NG NRG Bacterial blood culture - 08/11/16 12:03 Bacterial blood culture NG NRG Gram stain microscopy - 08/11/16 12:30 Gram stain microscopy positive pleomorphic rods, and gram negative rods NRG Bacteria identification in wound by culture - 08/11/16 12:30 Bacteria identification in wound by culture [id number] NR FREE TEXT EXTERNAL NO FURTHERR STUDIES UNLESS REQUESTED NRG QUANTITY OF GROWTH Scant Growth NRG FREE TEXT ENTRY 2 BETA LACTAMASE NEGATIVE ,SEE COMMENT NRG Complete blood count (CBC) with automated white blood cell (WBC) differential - 08/12/16 04:12 Blood leukocytes automated count (number/volume) 19.5 10*3/uL 4.3-11.0 Blood erythrocytes automated count (number/volume) 4.91 10*6/uL 4.35-5.85 Venous blood hemoglobin measurement (mass/volume) 16.2 g/dL 13.3-17.7 Blood hematocrit (volume fraction) 46 % 40-54 Automated erythrocyte mean corpuscular volume 94 [foz_us] 80-99 Automated erythrocyte mean corpuscular hemoglobin (mass per erythrocyte) 33 pg 25-34 Automated erythrocyte mean corpuscular hemoglobin concentration measurement ( mass/volume) 35 g/dL 32-36 Automated erythrocyte distribution width ratio 14.3 % 10.0-14.5 Automated blood platelet count (count/volume) 181 10*3/uL 130-400 Automated blood platelet mean volume measurement 10.7 [foz_us] 7.4-10.4 Automated blood neutrophils/100 leukocytes 93 % 42-75 Automated blood lymphocytes/100 leukocytes 5 % 12-44 Blood monocytes/100 leukocytes 2 % 0-12 Automated blood eosinophils/100 leukocytes 0 % 0-10 Automated blood basophils/100 leukocytes 0 % 0-10 Blood neutrophils automated count (number/volume) 18.2 10*3 1.8-7.8 Blood lymphocytes automated count (number/volume) 0.9 10*3 1.0-4.0 Blood monocytes automated count (number/volume) 0.4 10*3 0.0-1.0 Automated eosinophil count 0.0 10*3/uL 0.0-0.3 Automated blood basophil count (count/volume) 0.0 10*3/uL 0.0-0.1 Complete urinalysis with reflex to culture - 10/27/17 00:30 Urine color determination RED NRG Urine clarity determination VERY CLOUDY NRG Urine pH measurement by test strip 5 5-9 Specific gravity of urine by test strip 1.030 1.016- 1.022 Urine protein assay by test strip, semi-quantitative 3+ NEGATIVE Urine glucose detection by automated test strip NEGATIVE NEGATIVE Erythrocytes detection in urine sediment by light microscopy 5+ NEGATIVE Urine ketones detection by automated test strip 1+ NEGATIVE Urine nitrite detection by test strip NEGATIVE NEGATIVE Urine total bilirubin detection by test strip 1+ NEGATIVE Urine urobilinogen measurement by automated test strip (mass/volume) 4 mg/dL NORMAL Urine leukocyte esterase detection by dipstick 1+ NEGATIVE Automated urine sediment erythrocyte count by microscopy (number/high power field) [HPF] NRG Automated urine sediment leukocyte count by microscopy (number/high power field ) [HPF] NRG Bacteria detection in urine sediment by light microscopy LARGE NRG Squamous epithelial cells detection in urine sediment by light microscopy RARE NRG Crystals detection in urine sediment by light microscopy PRESENT NRG Casts detection in urine sediment by light microscopy NONE NRG Mucus detection in urine sediment by light microscopy SMALL NRG Complete urinalysis with reflex to culture YES NRG Amorphous sediment detection in urine sediment by light microscopy MOD ZACHARIAH URATES NRG Calcium oxalate crystals detection in urine sediment by light microscopy FEW NRG Bacterial urine culture - 10/27/17 00:30 Bacterial urine culture SEE REPORT NRG COLONY COUNT . NRG Complete blood count (CBC) with automated white blood cell (WBC) differential - 10/27/17 01:06 Blood leukocytes automated count (number/volume) 19.5 10*3/uL 4.3-11.0 Blood erythrocytes automated count (number/volume) 4.79 10*6/uL 4.35-5.85 Venous blood hemoglobin measurement (mass/volume) 16.8 g/dL 13.3-17.7 Blood hematocrit (volume fraction) 45 % 40-54 Automated erythrocyte mean corpuscular volume 94 [foz_us] 80-99 Automated erythrocyte mean corpuscular hemoglobin (mass per erythrocyte) 35 pg 25-34 Automated erythrocyte mean corpuscular hemoglobin concentration measurement ( mass/volume) 37 g/dL 32-36 Automated erythrocyte distribution width ratio 13.2 % 10.0-14.5 Automated blood platelet count (count/volume) 187 10*3/uL 130-400 Automated blood platelet mean volume measurement 10.3 [foz_us] 7.4-10.4 Automated blood neutrophils/100 leukocytes 83 % 42-75 Automated blood lymphocytes/100 leukocytes 9 % 12-44 Blood monocytes/100 leukocytes 5 % 0-12 Automated blood eosinophils/100 leukocytes 3 % 0-10 Automated blood basophils/100 leukocytes 0 % 0-10 Blood neutrophils automated count (number/volume) 16.0 10*3 1.8-7.8 Blood lymphocytes automated count (number/volume) 1.8 10*3 1.0-4.0 Blood monocytes automated count (number/volume) 1.0 10*3 0.0-1.0 Automated eosinophil count 0.6 10*3/uL 0.0-0.3 Automated blood basophil count (count/volume) 0.1 10*3/uL 0.0-0.1 Comprehensive metabolic panel - 10/27/17 01:06 Serum or plasma sodium measurement (moles/volume) 140 mmol/L 135-145 Serum or plasma potassium measurement (moles/volume) 3.7 mmol/L 3.6-5.0 Serum or plasma chloride measurement (moles/volume) 106 mmol/L 98-107 Carbon dioxide 21 mmol/L 21-32 Serum or plasma anion gap determination (moles/volume) 13 mmol/L 5-14 Serum or plasma urea nitrogen measurement (mass/volume) 7 mg/dL 7-18 Serum or plasma creatinine measurement (mass/volume) 1.07 mg/dL 0.60-1.30 Serum or plasma urea nitrogen/creatinine mass ratio 7 NRG Serum or plasma creatinine measurement with calculation of estimated glomerular filtration rate > NRG Serum or plasma glucose measurement (mass/volume) 135 mg/dL 70-105 Serum or plasma calcium measurement (mass/volume) 8.9 mg/dL 8.5-10.1 Serum or plasma total bilirubin measurement (mass/volume) 0.4 mg/dL 0.1-1.0 Serum or plasma alkaline phosphatase measurement (enzymatic activity/volume) 89 U/L 40-136 Serum or plasma aspartate aminotransferase measurement (enzymatic activity/ volume) 20 U/L 5-34 Serum or plasma alanine aminotransferase measurement (enzymatic activity/volume ) 18 U/L 0-55 Serum or plasma protein measurement (mass/volume) 6.9 g/dL 6.4-8.2 Serum or plasma albumin measurement (mass/volume) 4.2 g/dL 3.2-4.5 CALCIUM CORRECTED 8.7 mg/dL 8.5-10.1 Blood manual differential performed detection - 10/27/17 01:06 Blood monocytes/100 leukocytes 2 % NRG Manual blood segmented neutrophils/100 leukocytes 83 % NRG Blood band neutrophils/100 leukocytes 0 % NRG Manual blood lymphocytes/100 leukocytes 10 % NRG Manual eosinophils/100 leukocytes in nose 3 % NRG Manual blood basophils/100 leukocytes 0 % NRG Blood lymphocytes variant/100 leukocytes 2 % NRG Blood erythrocyte morphology finding identification NORMAL NRG Encounters ACCT No. Visit Date/Time Discharge Status Pt. Type Provider Facility Loc./Unit Complaint [id number] 10/26/2017 23:45:00 10/27/2017 02:45:00 DIS Emergency GASTON AMES, JUNI Horn [facility] ER ABD PAIN,TESTICULAR PAIN [id number] 07/06/2017 12:00:00 07/06/2017 13:47:00 DIS Outpatient IRINAMEGHAN [facility] ER BACK PAIN [id number] 08/11/2016 12:56:00 08/13/2016 11:35:00 DIS Inpatient POOJA AMES, MATTHEW Whalen [facility] 4TH RT PERITONSILLAR ABSCESS, SEPSIS [id number] 07/09/2014 23:20:00 07/10/2014 17:10:00 DIS Inpatient IGNNY WHITFIELD DO [facility] 4TH BRONCHITIS W/ HYPOXIA; HTN; TACHYCARDIA [id number] 05/04/2013 17:38:00 05/05/2013 10:07:00 DIS Inpatient SHAHID AMES, JESSY Camilo [facility] 4TH DENTAL ABSCESS [id number] 01/31/2013 10:16:00 01/31/2013 23:59:59 CLS Outpatient [id number] 03/21/2018 15:05:00 ACT Emergency STEPHANIE MENJIVAR APRN [facility] ER FACE [place] [id number] 07/21/2017 10:20:00 07/21/2017 23:59:59 CLS Outpatient TAY DONNELLY [facility]
--- NOTE | 2018-03-21 15:42 | ED EENT ---
History of Present Illness General Stated Complaint: FACE SWOLLEN Source: patient Exam Limitations: no limitations History of Present Illness Date Seen by Provider: Mar 21, 2018 Time Seen by Provider: 15:42 Initial Comments To ER with left upper facial pain and swelling. This is been ongoing for couple of days. Timing/Duration: this morning Severity: moderate Location: facial, dental Associated Symptoms: facial pain/swelling Allergies and Home Medications Allergies Coded Allergies: Penicillins (Unverified Allergy, Unknown, 05/04/13) Home Medications Cefuroxime Axetil 250 Mg Tablet, 250 MG PO BID Prescribed by: SHIRA KAISER on 08/13/16 110 Cephalexin 500 Mg Tablet, 500 MG PO BID Prescribed by: JUNI FELDMAN on 10/27/17 023 Clindamycin HCl 300 Mg Capsule, 300 MG PO TID Prescribed by: STEPHANIE MENJIVAR on 03/21/181715 Cyclobenzaprine HCl 10 Mg Tablet, 10 MG PO TID PRN for SPASMS Prescribed by: MEGHAN AREVALO on 07/06/17 133 Hydrocodone Bit/Acetaminophen 1 Each Tablet, 1 EACH PO Q6H PRN for PAIN Prescribed by: SHIRA KAISER on 08/13/16 110 Hydrocodone Bit/Acetaminophen 1 Tab Tab, 1 EACH PO Q4H PRN for PAIN Prescribed by: MEGHAN AREVALO on 07/06/171336 Hydrocodone Bit/Acetaminophen 1 Tab Tab, 1 EACH PO Q4H PRN for PAIN-MODERATE Prescribed by: JUNI FELDMAN on 10/27/177 Hydrocodone/Acetaminophen 1 Each Tablet, 1 EACH PO Q6H PRN for PAIN-MODERATE Do not fill unless antibiotics are also filled Prescribed by: STEPHANIE MENJIVAR on 03/21/181715 Ibuprofen 200 Mg Tablet, 600 MG PO DAILY PRN for PAIN-MILD, (Reported) TAKES 3 (200 MG) TABLETS Prednisone 10 Mg Tab.ds.pk, 30 MG PO DAILY Take 3 pills once daily for 3 days then 2 pills once daily for 3 days then 1 pill daily for 3 days Prescribed by: SHIRA KAISER on 08/13/16 110 Prednisone 20 Mg Tab, 60 MG PO DAILY take 3 tablets once daily for 3 days, then take 2 tablets once daily for 3 days, then 1 tablet once daily for 3 days. Prescribed by: MEGHAN AREVALO on 5/28/18 1337 Patient Home Medication List Home Medication List Reviewed: Yes Review of Systems Review of Systems Constitutional: see HPI Eyes: No Symptoms Reported Ears: No Symptoms Reported Nose: no symptoms reported Mouth: no symptoms reported Throat: no symptoms reported Respiratory: no symptoms reported Cardiovascular: no symptoms reported Musculoskeletal: no symptoms reported Skin: no symptoms reported Neurological: No Symptoms Reported Hematologic/Lymphatic: No Symptoms Reported Past Vcnsngy-Nlbyew-Dzeoxk Hx Patient Social History Drug of Choice: thc Type Used: Cigarettes Recent Foreign Travel: No Contact w/Someone Who Travel: No Immunizations Up To Date Tetanus Booster (TDap): Unknown Seasonal Allergies Seasonal Allergies: No Past Medical History Surgeries: No Respiratory: Yes Chronic Bronchitis Currently Using CPAP: No Currently Using BIPAP: No Cardiac: Yes Neurological: No Reproductive Disorders: No Genitourinary: No Gastrointestinal: Yes Gastroesophageal Reflux Musculoskeletal: Yes (BACK INJURY & BILATERAL CLAVICLE FXS IN 5TH GRADE-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 7.0oz. 83.995801je; 27.0 BMI Method:Stated General Appearance: WD/WN, no apparent distress Eyes: bilateral eye normal inspection, bilateral eye PERRL, bilateral eye EOMI Ears: bilateral ear auricle normal, bilateral ear canal normal, bilateral ear TM normal Mouth/Throat: maxillary swelling, other (there is significant left facial swelling, minimal redness. This is on the left maxillary region) Neck: non-tender, full range of motion, other (nodule to the right anterior lateral neck he states has been there for "years". It's mobile and nontender. ) Gastrointestinal: normal bowel sounds, non tender, soft Neurologic/Psychiatric: alert, normal mood/affect, oriented x 3 Progress/Results/Core Measures Results/Orders Lab Results Laboratory Tests Test 03/21/18 15:50 Range/Units White Blood Count 10.9 4.3-11.0 10^3/uL Red Blood Count 4.90 4.35-5.85 10^6/uL Hemoglobin 16.3 13.3-17.7 G/DL Hematocrit 47 40-54 % Mean Corpuscular Volume 96 80-99 FL Mean Corpuscular Hemoglobin 33 25-34 PG Mean Corpuscular Hemoglobin Concent 35 32-36 G/DL Red Cell Distribution Width 14.2 10.0-14.5 % Platelet Count 212 130-400 10^3/uL Mean Platelet Volume 10.1 7.4-10.4 FL Neutrophils (%) (Auto) 63 42-75 % Lymphocytes (%) (Auto) 22 12-44 % Monocytes (%) (Auto) 8 0-12 % Eosinophils (%) (Auto) 6 0-10 % Basophils (%) (Auto) 1 0-10 % Neutrophils # (Auto) 6.9 1.8-7.8 X 10^3 Lymphocytes # (Auto) 2.4 1.0-4.0 X 10^3 Monocytes # (Auto) 0.9 0.0-1.0 X 10^3 Eosinophils # (Auto) 0.7 H 0.0-0.3 10^3/uL Basophils # (Auto) 0.1 0.0-0.1 10^3/uL Sodium Level 141 135-145 MMOL/L Potassium Level 4.3 3.6-5.0 MMOL/L Chloride Level 106 98-107 MMOL/L Carbon Dioxide Level 25 21-32 MMOL/L Anion Gap 10 5-14 MMOL/L Blood Urea Nitrogen 10 7-18 MG/DL Creatinine 0.83 0.60-1.30 MG/DL Estimat Glomerular Filtration Rate > 60 BUN/Creatinine Ratio 12 Glucose Level 101 70-105 MG/DL Calcium Level 9.2 8.5-10.1 MG/DL Corrected Calcium 9.1 8.5-10.1 MG/DL Total Bilirubin 0.6 0.1-1.0 MG/DL Aspartate Amino Transf (AST/SGOT) 22 5-34 U/L Alanine Aminotransferase (ALT/SGPT) 20 0-55 U/L Alkaline Phosphatase 98 40-136 U/L Total Protein 7.3 6.4-8.2 GM/DL Albumin 4.1 3.2-4.5 GM/DL My Orders Orders - STEPHANIE MENJIVAR APRN Cbc With Automated Diff (2/10/19 15:41) Comprehensive Metabolic Panel (03/21/18 15:41) Iv Heplock-Insert (Order) (03/21/18 15:41) Clindamycin 900 Mg/50 Ml Ivpb (Cleocin P (03/21/18 15:45) Fentanyl Injection (Sublimaze Injection (03/21/18 16:00) Ketorolac Injection (Toradol Injection) (03/21/18 16:00) Ct Maxillofacial W Wo (03/21/18 15:41) Iohexol Injection (Omnipaque 350 Mg/Ml 1 (03/21/18 16:00) Contrast Received (Contrast Received) (03/21/18 16:00) Ns (Ivpb) (Sodium Chloride 0.9% Ivpb Bag (03/21/18 16:00) Rx-Clindamycin Capsule (Rx-Cleocin Capsu (03/21/18 17:17) Medications Given in ED Current Medications Medications Dose Ordered Sig/Enedina Route Start Time Stop Time Status Last Admin Dose Admin Clindamycin Phosphate/Dextrose 50 ml @ 100 mls/hr ONCE ONCE IV 03/21/18 15:45 03/21/18 16:14 DC 03/21/18 14:05 100 MLS/HR Fentanyl Citrate 50 mcg ONCE ONCE IVP 03/21/18 16:00 03/21/18 16:01 DC 03/21/18 15:56 50 MCG Iohexol 80 ml ONCE ONCE IV 03/21/18 16:00 03/21/18 16:01 DC 03/21/18 16:56 80 ML Ketorolac Tromethamine 15 mg ONCE ONCE IVP 03/21/18 16:00 03/21/18 16:01 DC 03/21/18 15:56 15 MG Sodium Chloride 100 ml ONCE ONCE IV 03/21/18 16:00 03/21/18 16:01 DC 03/21/18 16:56 80 ML Vital Signs/I&O 03/21/18 15:33 Temp 98.7 Pulse 79 Resp 17 B/P (MAP) 149/98 (115) Diagnostic Imaging Diagonstic Imaging: CT Comments NAME: YANIRAKHOI L [facility] REC#: [id number] PT STATUS: REG ER : 1975 PHYSICIAN: STEPHANIE MENJIVAR ACUTE CARE PHYSICIAN ADMIT DATE: 03/21/18/ER Signed Date of Exam:03/21/18 CT MAXILLOFACIAL W WO PROCEDURE: CT maxillofacial with and without contrast. TECHNIQUE: CT imaging of the maxillofacial structures before and after the administration of intravenous contrast with reformatted images. INDICATION: Left-sided facial pain and swelling, toothache progressive in severity. FINDINGS: There are extensive maxillary and mandibular received changes adjacent to dental roots several of these showing anterior cortical breakthrough most notably at the left maxilla at tooth numbers 10 and 11 and also on the mandibular side at tooth numbers 18 and 24. There is extensive left facial cellulitis, edema and swelling. At this nonenhanced study, no identifiable discrete fluid collection or drainable abscess is found. No extension of the inflammatory process into the parapharyngeal spaces found. The airway is widely patent. No soft tissue gas. There is a shallow air-fluid level in the left sphenoid sinus. There is membrane thickening in the left greater than right maxillary sinuses with nasal septal spurring and deviation towards the right. There is scattered membrane thickening of ethmoid air cells. The left frontal sinus is hypoplastic, the right frontal clear. There is no mastoid effusion and middle ear cavities appeared normal. IMPRESSION: Extensive periodontal erosions and cortical breakthrough with left facial cellulitis but no drainable fluid collection, abscess or gas. Paranasal sinus disease as described. No distortion of the pharyngeal or parapharyngeal fat. No airway embarrassment. Dictated by: Dictated on workstation # [id number] Dict: 03/21/18 1634 Trans: 03/21/18 1657 [id number] Interpreted by: JESUS LEE Electronically signed by: JESUS LEE 03/21/18 1657 Departure Impression Primary Impression: Facial cellulitis Additional Impression: Dental infection Disposition: 01 HOME, SELF-CARE Condition: Stable Departure-Patient Inst. Decision time for Depature: 17:14 Referrals: NO,LOCAL PHYSICIAN (PCP/Family) Primary Care Physician Patient Instructions: General (DC) Add. Discharge Instructions: 1. Return to ER for increased swelling pain fevers or other concerns. Take the antibiotics as directed. Call your family doctor or dentist tomorrow to make an appointment to be seen within 48 hours for recheck. Scripts Clindamycin HCl (Clindamycin HCl) 300 Mg Capsule 300 MG PO TID, #30 CAP Prov: STEPHANIE MENJIVAR APRN 03/21/18 Hydrocodone/Acetaminophen ([place] 5-325 Tablet) 1 Each Tablet 1 EACH PO Q6H PRN for PAIN-MODERATE MDD 10, #14 TAB Do not fill unless antibiotics are also filled Prov: STEPHANIE MENJIVAR APRN 03/21/18 Work/School Note: Work Release Form Date Seen in the Emergency Department: Mar 21, 2018 Return to Work: Mar 23, 2018 STEPHANIE MENJIVAR APRN Mar 21, 2018 15:42
[2018-03-21 15:57] LABS: BASOPHILS # (AUTO) 0.1 10^3/uL (0.0-0.1); BASOPHILS % (AUTO) 1 % (0-10); EOSINOPHILS # (AUTO) 0.7 10^3/uL (0.0-0.3); EOSINOPHILS % (AUTO) 6 % (0-10); HEMATOCRIT 47 % (40-54); HEMOGLOBIN 16.3 G/DL (13.3-17.7); LYMPHOCYTES # (AUTO) 2.4 X 10^3 (1.0-4.0); LYMPHOCYTES % (AUTO) 22 % (12-44); MEAN CORPUSCULAR HEMOGLOBIN 33 PG (25-34); MEAN CORPUSCULAR HGB CONC 35 G/DL (32-36); MEAN CORPUSCULAR VOLUME 96 FL (80-99); MEAN PLATELET VOLUME 10.1 FL (7.4-10.4); MONOCYTES # (AUTO) 0.9 X 10^3 (0.0-1.0); MONOCYTES % (AUTO) 8 % (0-12); NEUTROPHILS # (AUTO) 6.9 X 10^3 (1.8-7.8); NEUTROPHILS % (AUTO) 63 % (42-75); PLATELET COUNT 212 10^3/uL (130-400); RED CELL DISTRIBUTION WIDTH 14.2 % (10.0-14.5); WHITE BLOOD COUNT 10.9 10^3/uL (4.3-11.0)
[2018-03-21] MEDS ORDERED: IOHEXOL 350 MG/ML 100 ML (OMNIPAQUE 350) VIAL IV ONE (16:00)
[2018-03-21] MEDS ORDERED: NS 100 ML (IVPB) BAG IV ONE (16:00)
[2018-03-21] MEDS ORDERED: KETOROLAC 30 MG/ML VIAL IVP ONE (16:00)
[2018-03-21] MEDS ORDERED: RECEIVED CONTRAST (Hold Metformin) IV SCH (16:00)
[2018-03-21] MEDS ORDERED: fentaNYL INJECTION 100 MCG/2 ML AMP IVP ONE (16:00)
[2018-03-21 16:18] LABS: ALANINE AMINOTRANSFERASE 20 U/L (0-55); ALBUMIN 4.1 GM/DL (3.2-4.5); ALKALINE PHOSPHATASE 98 U/L (40-136); BILIRUBIN,TOTAL 0.6 MG/DL (0.1-1.0); BUN/CREATININE RATIO 12; CALCIUM 9.2 MG/DL (8.5-10.1); CARBON DIOXIDE 25 MMOL/L (21-32); CHLORIDE 106 MMOL/L (98-107); CREATININE SERUM 0.83 MG/DL (0.60-1.30); GFR ESTIMATED > 60; GLUCOSE 101 MG/DL (70-105); POTASSIUM 4.3 MMOL/L (3.6-5.0); SODIUM 141 MMOL/L (135-145); TOTAL PROTEIN 7.3 GM/DL (6.4-8.2)
--- NOTE | 2018-03-21 16:56 | Diagnostic Imaging Report ---
PROCEDURE: CT maxillofacial with and without contrast. TECHNIQUE: CT imaging of the maxillofacial structures before and after the administration of intravenous contrast with reformatted images. INDICATION: Left-sided facial pain and swelling, toothache progressive in severity. FINDINGS: There are extensive maxillary and mandibular received changes adjacent to dental roots several of these showing anterior cortical breakthrough most notably at the left maxilla at tooth numbers 10 and 11 and also on the mandibular side at tooth numbers 18 and 24. There is extensive left facial cellulitis, edema and swelling. At this nonenhanced study, no identifiable discrete fluid collection or drainable abscess is found. No extension of the inflammatory process into the parapharyngeal spaces found. The airway is widely patent. No soft tissue gas. There is a shallow air-fluid level in the left sphenoid sinus. There is membrane thickening in the left greater than right maxillary sinuses with nasal septal spurring and deviation towards the right. There is scattered membrane thickening of ethmoid air cells. The left frontal sinus is hypoplastic, the right frontal clear. There is no mastoid effusion and middle ear cavities appeared normal. IMPRESSION: Extensive periodontal erosions and cortical breakthrough with left facial cellulitis but no drainable fluid collection, abscess or gas. Paranasal sinus disease as described. No distortion of the pharyngeal or parapharyngeal fat. No airway embarrassment. Dictated by: Dictated on workstation # [id number]
[2018-03-21] MEDS ORDERED: HYDR-4226 PO (17:16)
[2018-03-21] MEDS ORDERED: CLIN300C11 PO (17:16)
[2018-03-21] MEDS ORDERED: RX-CLINDAMYCIN 150 MG (CLEOCIN) CAP PPK#4 PO STA ×2 (17:17→17:26)
[2018-03-21 17:28] VITALS: BP 145/95
[2018-03-21] MEDS ORDERED: RX-HYDROCODONE/APAP 5/325 MG #4 TAB PK PO PRN (17:30)
== END 2018-03-21 17:30 | disposition home or self-care (01) ==
LOC: EDUNIT# 15:04 → ER 15:05
DX: L03.211 Cellulitis of face (principal); K04.7 Periapical abscess without sinus; J42 Unspecified chronic bronchitis; F32.9 Major depressive disorder, single episode, unspecified; Z88.0 Allergy status to penicillin; Z79.52 Long term (current) use of systemic steroids; Z87.09 Personal history of other diseases of the respiratory system
CPT/HCPCS: 36415; 70488; 80053; 85025

== ENCOUNTER 2022-08-20 14:29 | Emergency (ER) | payer SELFPAY ==
[~2022-08-20 14:29] MED LIST changes: +CLIN-144 PO; +CYCL10TA25 PO; -CYCL10TA9 PO; +HYDR-4226 PO; -IBUP-2055 PO; +IBUP-2473 PO
--- NOTE | 2022-08-20 14:59 | ED Back Pain ---
General Chief Complaint: Back Problems Stated Complaint: LOWER BACK AND LEG PAIN Nursing Triage Note: PT STATES HAS SEVERE BACK PAIN /, DENIES ANY INJURIES. PT CO OF LOW BACK PAIN THAT GOES DOWN L LEG. DENIES ANY NUMBNESS. Source of Information: Patient Exam Limitations: No Limitations History of Present Illness Date Seen by Provider: Aug 20, 2022 Time Seen by Provider: 14:42 Initial Comments Patient is a 46-year-old male who presents to the emergency department with a chief complaint of severe low back pain. Patient states he has had back pain for about 2 weeks, he states normally he can get over it on his own after laying around in bed for a week. He states over the course of the last week however pain has radiated into his left hip down his left leg to his toes. He states he has pain in his feet. No numbness. He complains of weakness to the leg due to pain. He tells me that he has a history of "spinal stenosis" diagnosed here in 2018. He has tried 400 mg of ibuprofen x1 without any relief of symptoms. No heat/ice patches or Biofreeze or lidocaine patches. He states he also "tried some meth" a couple of weeks ago because someone told him it would help with the pain. Denies incontinence of bowel or bladder. He states mopping and sweeping make his pain worse. Also when I laid the patient supine he states this increased his pain. Prior medical records reveals the patient had CT lumbar spine in 2018 that showed left foraminal stenosis, also Showed degenerative disc disease at L3-4, 4-5. Location: Lumbar Spine Timing/Duration: Other (2 weeks; 1 week of left leg pain) Severity: Severe Pain/Injury Location: Back Radiation: Feet (left) Method of Injury: Unknown Modifying Factors: Improves With Immobilization; Worse With Movement; Improves With Other (laying flat worsens pain) Associated Symptoms: tingling in legs/feet (left), lower back pain; No loss of bladder control, No loss of bowel control Allergies and Home Medications Allergies Coded Allergies: Penicillins (Unverified Allergy, Unknown, 05/04/13) Patient Home Medication List Home Medication List Reviewed: Yes Cefuroxime Axetil (Cefuroxime) 250 Mg Tablet, 250 MG PO BID Prescribed by: SHIRA KAISER on 08/13/16 1101 Cephalexin (Cephalexin) 500 Mg Tablet, 500 MG PO BID Prescribed by: JUNI FELDMAN on 10/27/17236 Clindamycin HCl (Clindamycin HCl) 300 Mg Capsule, 300 MG PO TID Prescribed by: STEPHANIE MENJIVAR on 03/21/181715 Cyclobenzaprine HCl (Cyclobenzaprine HCl) 10 Mg Tablet, 10 MG PO TID PRN for SPASMS Prescribed by: MEGHAN AREVALO on 07/06/17 133 Hydrocodone Bit/Acetaminophen (Lortab 5 Mg Tablet) 1 Each Tablet, 1 EACH PO Q6H PRN for PAIN Prescribed by: SHIRA KAISER on 08/13/16 110 Hydrocodone Bit/Acetaminophen (Lortab 5 Mg Tablet) 1 Tab Tab, 1 EACH PO Q4H PRN for PAIN Prescribed by: MEGHAN AREVALO on 07/06/171336 Hydrocodone Bit/Acetaminophen (Lortab 5 Mg Tablet) 1 Tab Tab, 1 EACH PO Q4H PRN for PAIN-MODERATE Prescribed by: JUNI FELDMAN on 10/27/17236 Hydrocodone/Acetaminophen (Hydrocodone/Acetaminophen 5 MG/325 MG TAB) 1 Each Tablet, 1 EACH PO Q6H PRN for PAIN-MODERATE Prescribed by: STEPHANIE MENJIVAR on 03/21/181715 Ibuprofen (Ibuprofen) 200 Mg Tablet, 600 MG PO DAILY PRN for PAIN-MILD, (Reported) Entered as Reported by: KAROLINA VILLA on 08/11/16 1431 Methocarbamol (Methocarbamol) 750 Mg Tablet, 1,500 MG PO Q8H Prescribed by: ZULLY SYED on 08/20/22 1609 Naproxen (Naproxen) 500 Mg Tablet.dr, 500 MG PO BID PRN for PAIN Prescribed by: ZULLY SYED on 08/20/22 1609 Prednisone (Prednisone) 10 Mg Tab.ds.pk, 30 MG PO DAILY Prescribed by: SHIRA KAISER on 08/13/16 110 Prednisone (Prednisone) 20 Mg Tab, 60 MG PO DAILY Prescribed by: MEGHAN AREVALO on 07/06/17 133 Review of Systems Constitutional: see HPI EENTM: no symptoms reported Respiratory: no symptoms reported Cardiovascular: no symptoms reported Gastrointestinal: no symptoms reported Genitourinary: no symptoms reported Musculoskeletal: back pain, other (left leg pain) Skin: no symptoms reported Psychiatric/Neurological: Paresthesia (left foot and toes), Weakness (left leg due to pain) All Other Systems Reviewed Negative Unless Noted: Yes Past Aqybqbj-Bbzcei-Bhfslb Hx Patient Social History Tobacco Use?: Yes Tobacco type used: Cigarettes Smoking Status: Current Everyday Smoker Substance use?: Yes Substance type: Methamphetamine, Marijuana Substance frequency: Daily Alcohol Use?: No Pt feels they are or have been: No Immunizations Up To Date Tetanus Booster (TDap): Unknown Seasonal Allergies Seasonal Allergies: No Past Medical History Surgery/Hospitalization HX: SPINAL STENOSIS, ABN HEART, KIDNEYSTONES. Surgeries: No Respiratory: Yes Chronic Bronchitis Currently Using CPAP: No Currently Using BIPAP: No Cardiac: Yes Neurological: No Reproductive Disorders: No Genitourinary: Yes Kidney Stones Gastrointestinal: Yes Gastroesophageal Reflux Musculoskeletal: Yes (BACK INJURY & BILATERAL CLAVICLE FXS IN 5TH GRADE-FELL OFF MONKEY BARS) Fractures Endocrine: No HEENT: Yes (tonsil abscess current 08/11/16) Cancer: No Psychosocial: Yes Depression Integumentary: Yes Blood Disorders: No Adverse Reaction/Blood Tranf: No Family Medical History Family history: Thyroid disorder 09 SISTER No Pertinent Family Hx Physical Exam Vital Signs Vital Signs - First Documented 08/20/22 14:35 Temp 36.9 Pulse 123 Resp 18 B/P (MAP) 193/102 (132) Pulse Ox 96 Capillary Refill : Less Than 3 Seconds Height, Weight, BMI Height: 5'8.00" Weight: 185lbs. 7.0oz. [id number]; 27.0 BMI Method:Stated General Appearance: No Apparent Distress, Thin HEENT: PERRL/EOMI Neck: No Lymphadenopathy (L), No Lymphadenopathy (R); Other (large (what ap pears to be) epidermal inclusion cyst right neck at apex of SCM anteriorly. Soft and mobile about 4cm diameter) Cardiovascular: Regular Rate, Rhythm, Normal Peripheral Pulses, Tachycardia (120's) Respiratory: Lungs Clear, Normal Breath Sounds, No Accessory Muscle Use, No Respiratory Distress Gastrointestinal: Normal Bowel Sounds, Non Tender, Soft Back: Normal Inspection, Vertebral Tenderness (patient states pain to light palpation of Lumbar spine in the midline at about L3,4. no palpable deformities; no swelling; no rash; also tender over the left posterior superior iliac crest) Extremity: Normal Capillary Refill, Normal Inspection, Normal Range of Motion, No Calf Tenderness Neurologic/Psychiatric: Alert, Oriented x3, Normal Mood/Affect (slightly hyperactive, almost pressured speech); No Sensory Deficit; Other (patient has intact sensation to BLE; normal 5/5 dorsiflexion and plantar flexion bilaterally; 2+ patella DTR's; discomfort to raising left leg off the bed - he appears to struggle - states pain in low back with elevating leg off the bed 10- 20 degrees) Skin: Normal Color, Warm/Dry, Other (tinea versicolor) Progress/Results/Core Measures Results/Orders Lab Results Laboratory Tests Test 08/20/22 15:19 08/20/22 15:24 Range/Units Urine Color YELLOW Urine Clarity CLEAR Urine pH 6.0 5-9 Urine Specific [place] 1.020 1.016-1.022 Urine Protein NEGATIVE NEGATIVE Urine Glucose (UA) NEGATIVE NEGATIVE Urine Ketones NEGATIVE NEGATIVE Urine Nitrite NEGATIVE NEGATIVE Urine Bilirubin NEGATIVE NEGATIVE Urine Urobilinogen 1.0 < = 1.0 MG/DL Urine Leukocyte Esterase NEGATIVE NEGATIVE Urine RBC (Auto) NEGATIVE NEGATIVE Urine RBC RARE /HPF Urine WBC 0-2 /HPF Urine Squamous Epithelial Cells RARE /HPF Urine Crystals NONE /LPF Urine Bacteria MODERATE H /HPF Urine Casts NONE /LPF Urine Mucus SMALL H /LPF Urine Culture Indicated YES Urine Opiates Screen NEGATIVE NEGATIVE Urine Oxycodone Screen NEGATIVE NEGATIVE Urine Methadone Screen NEGATIVE NEGATIVE Urine Propoxyphene Screen NEGATIVE NEGATIVE Urine Barbiturates Screen NEGATIVE NEGATIVE Ur Tricyclic Antidepressants Screen NEGATIVE NEGATIVE Urine Phencyclidine Screen NEGATIVE NEGATIVE Urine Amphetamines Screen POSITIVE H NEGATIVE Urine Methamphetamines Screen POSITIVE H NEGATIVE Urine Benzodiazepines Screen NEGATIVE NEGATIVE Urine Cocaine Screen NEGATIVE NEGATIVE Urine Cannabinoids Screen POSITIVE H NEGATIVE Sodium Level 141 135-145 MMOL/L Potassium Level 4.1 3.6-5.0 MMOL/L Chloride Level 105 98-107 MMOL/L Carbon Dioxide Level 26 21-32 MMOL/L Anion Gap 10 5-14 MMOL/L Blood Urea Nitrogen 6 L 7-18 MG/DL Creatinine 0.78 0.60-1.30 MG/DL Estimat Glomerular Filtration Rate 113 BUN/Creatinine Ratio 8 Glucose Level 105 70-105 MG/DL Calcium Level 9.0 8.5-10.1 MG/DL My Orders Orders - ZULLY SYED MD Ed Iv/Invasive Line Start (08/20/22 15:00) Basic Metabolic Panel (08/20/22 15:00) Drug Screen Stat (Urine) (08/20/22 15:00) Ua Culture If Indicated (08/20/22 15:00) Ketorolac Injection (Toradol Injection) (08/20/22 15:00) Lidocaine 4% Patch (Salonpas 4% Patch) (08/20/22 15:00) Cyclobenzaprine Tablet (Flexeril Tablet) (08/20/22 15:00) Labetalol Injection (Normodyne Injection (08/20/22 15:30) Urine Culture (08/20/22 15:19) Medications Given in ED Current Medications Medications Dose Ordered Sig/Enedina Route Start Time Stop Time Status Last Admin Dose Admin Ketorolac Tromethamine 30 mg ONCE ONCE IVP 08/20/22 15:00 08/20/22 15:02 DC 08/20/22 15:27 30 MG Labetalol HCl 20 mg ONCE ONCE IV 08/20/22 15:30 08/20/22 15:31 DC 08/20/22 15:32 20 MG Vital Signs/I&O 08/20/22 14:35 Temp 36.9 Pulse 123 Resp 18 B/P (MAP) 193/102 (132) Pulse Ox 96 Blood Pressure Mean: 132 Progress Progress Note : Time: 16:00 Progress Note Patient seen and evaluated by me, evaluation today includes review of prior medical records, physical exam, basic metabolic panel, UA, urine drug screen pertinent physical exam findings well-developed well-nourished thin male in no acute distress. Tenderness to light palpation over the lower lumbar spine. Also tender over the left posterior superior iliac crest. Patient has normal dorsiflexion and plantarflexion of both feet. Intact sensation. Intact DTRs bilateral patella. Normal straight leg raise without radiation of pain below the knee on straight leg raise of the left particularly. He is able to lift the right leg almost vertical with no pain on the left. Abdominal exam is benign. Heart is regular, tachycardic in the 120s. The patient is quite hypertensive in the 190ss over 120s range. Patient states that he is not currently treated for high blood pressure and does not have a local doctor. diffrerential Diagnosis based on history and physical exam, acute radiculopathy, drug-seeking behavior. Patient's labs reviewed, basic metabolic panel is normal, specifically renal function. He is positive for methamphetamine today which is concerning as the patient states that his last use was 2 or 3 weeks ago and it would certainly be metabolized out at this point. Urine shows no evidence of proteinuria, doubtful that he is having any untoward effects on his renal function of his blood pressure. Patient is strongly encouraged to follow-up with primary care/[facility]. He was given a dose of labetalol for his hypertension. He was given Toradol 30 mg IV push as well as a lidocaine patch placed over the area of discomfort and 10 mg of p.o. Flexeril. Patient will be sent out on naproxen and a muscle relaxer. No concerning findings for acute cauda equina syndrome. He may indeed have progression of his radiculopathy but there is nothing concerning on examination today that would require urgent MRI. Patient discharged with both verbal and written return precautions. All questions are sought and answered. Patient states he is feeling "a little better" on discharge. Departure Impression Primary Impression: Low back pain potentially associated with radiculopathy Additional Impression: High blood pressure Qualified Codes: I10 - Essential (primary) hypertension Disposition: HOME, SELF-CARE Condition: Improved Departure-Patient Inst. Decision time for Depature: 16:04 Referrals: NO,LOCAL PHYSICIAN (PCP/Family) Primary Care Physician Patient Instructions: High Blood Pressure ED, Low back pain in adults Add. Discharge Instructions: Use lruj-sbl-hrixvdy lidocaine patches for the pain in her low back. Please follow packaging instructions. You can also use Biofreeze or Icy Hot as needed. Naproxen 500 mg twice a day for the next 5 days for pain. I have given you a prescription for a muscle relaxer. You can use this every 8 hours as needed for spasm. You need to follow-up with [facility] regarding your high blood pressure, as this needs further management. They can also arrange for more dedicated im aging of your low back. Return to the emergency department for any new, concerning or emergent complaints. Scripts Naproxen (Naproxen) 500 Mg Tablet. 500 MG PO BID PRN for PAIN, #20 TAB Prov: ZULLY SYED MD 08/20/22 Methocarbamol (Methocarbamol) 750 Mg Tablet 1500 MG PO Q8H for Back Pain, #20 TAB Prov: ZULLY SYED MD 08/20/22 ZULLY SYED MD Aug 20, 2022 14:58
[2022-08-20] MEDS ORDERED: LIDOCAINE 4% (SALONPAS) PATCH TOP STA (15:00)
[2022-08-20] MEDS ORDERED: CYCLOBENZAPRINE 10 MG (FLEXERIL) TAB PO STA (15:00)
[2022-08-20] MEDS ORDERED: LABETALOL HCL 20 MG/4 ML VIAL IV ONE (15:00)
[2022-08-20] MEDS ORDERED: KETOROLAC 30 MG/ML VIAL IVP ONE (15:00)
[2022-08-20] MEDS ORDERED: LABETALOL 200 MG/40 ML VIAL IV ONE (15:30)
[2022-08-20 15:38] LABS: BILIRUBIN,URINE NEGATIVE (NEGATIVE); CLARITY,URINE CLEAR; COLOR,URINE YELLOW; GLUCOSE, URINE (UA) NEGATIVE (NEGATIVE); KETONES,URINE NEGATIVE (NEGATIVE); LEUKOCYTE ESTERASE ,URINE NEGATIVE (NEGATIVE); NITRITE,URINE NEGATIVE (NEGATIVE); PROTEIN,URINE NEGATIVE (NEGATIVE)
[2022-08-20 15:45] LABS: POTASSIUM 4.1 MMOL/L (3.6-5.0)
[2022-08-20 15:50] LABS: BACTERIA,URINE MODERATE /HPF; RBC,URINE RARE /HPF; SQUAMOUS EPITHELIAL CELL,UR RARE /HPF; WBC,URINE 0-2 /HPF
[2022-08-20 15:50] LABS: CREATININE SERUM 0.78 MG/DL (0.60-1.30)
[2022-08-20 15:52] LABS: AMPHETAMINE SCREEN, URINE POSITIVE (NEGATIVE); BARBITURATE SCREEN URINE NEGATIVE (NEGATIVE); BENZODIAZEPINES SCREEN URINE NEGATIVE (NEGATIVE); CANNABINOID SCREEN, URINE POSITIVE (NEGATIVE); COCAINE SCREEN URINE NEGATIVE (NEGATIVE); METHADONE STAT NEGATIVE (NEGATIVE); OPIATE SCREEN URINE NEGATIVE (NEGATIVE); OXYCODONE STAT NEGATIVE (NEGATIVE); PROPOXYPHENE STAT NEGATIVE (NEGATIVE); TRICYCLIC ANTIDEPRESSANTS SCRE NEGATIVE (NEGATIVE)
[2022-08-20] MEDS ORDERED: METH-732 PO (16:09)
[2022-08-20] MEDS ORDERED: NAPR500T8 PO (16:09)
[2022-08-20 16:19] VITALS: BP 119/95
== END 2022-08-20 16:19 | disposition home or self-care (01) ==
LOC: EDUNIT# 14:29 → ER 14:32
DX: M54.16 Radiculopathy, lumbar region (principal); I10 Essential (primary) hypertension; F17.210 Nicotine dependence, cigarettes, uncomplicated; Z28.310 Unvaccinated for COVID-19
CPT/HCPCS: 36415; 80048; 80306; 81000; 87088

== ENCOUNTER 2022-09-17 12:34 | Emergency (ER) | payer SELFPAY ==
[~2022-09-17] VITALS: Ht 170.1 cm; Wt 74.8 kg
[~2022-09-17 12:34] MED LIST changes: +LISI10TA25 PO; +METH-732 PO; +METH4TAB10 PO; +NAPR500T8 PO
[2022-09-17] MEDS ORDERED: CYCLOBENZAPRINE 10 MG TABLET PO STA (12:49)
--- NOTE | 2022-09-17 12:51 | ED Hip Pain/Injury ---
General Chief Complaint: Hip/Pelvic Problems Stated Complaint: LT HIP PAIN | Source: patient, old records Exam Limitations: no limitations History of Present Illness Date Seen by Provider: Sep 17, 2022 Time Seen by Provider: 12:36 Initial Comments 46-year-old male coming in due to left hip pain. Started over a month ago and he was seen in the ER, has been persistent. He is no longer taking anything for it, including no ibuprofen. Pain worse when he lays on that left lateral side. Denies any weakness, numbness, bowel or bladder issue, fever, or new trauma. Allergies and Home Medications Allergies Coded Allergies: Penicillins (Unverified Allergy, Unknown, 09/17/22) Patient Home Medication List Home Medication List Reviewed: Yes Cefuroxime Axetil (Cefuroxime) 250 Mg Tablet, 250 MG PO BID Prescribed by: SHIRA KAISER on 08/13/16 1101 Cephalexin (Cephalexin) 500 Mg Tablet, 500 MG PO BID Prescribed by: JUNI FELDMAN on 10/27/17 0237 Clindamycin HCl (Clindamycin HCl) 300 Mg Capsule, 300 MG PO TID Prescribed by: STEPHANIE MENJIVAR on 03/21/18 1716 Cyclobenzaprine HCl (Cyclobenzaprine HCl) 10 Mg Tablet, 10 MG PO TID PRN for SPASMS Prescribed by: MEGHAN AREVALO on 07/06/17 1337 Cyclobenzaprine HCl (Cyclobenzaprine HCl) 10 Mg Tablet, 10 MG PO Q8H Prescribed by: CHAPARRO GREGORY on 09/17/22 1329 Hydrocodone Bit/Acetaminophen (Lortab 5 Mg Tablet) 1 Each Tablet, 1 EACH PO Q6H PRN for PAIN Prescribed by: SHIRA KAISER on 08/13/16 1101 Hydrocodone Bit/Acetaminophen (Lortab 5 Mg Tablet) 1 Tab Tab, 1 EACH PO Q4H PRN for PAIN Prescribed by: MEGHAN AREVALO on 07/06/17 1337 Hydrocodone Bit/Acetaminophen (Lortab 5 Mg Tablet) 1 Tab Tab, 1 EACH PO Q4H PRN for PAIN-MODERATE Prescribed by: JUNI FELDMAN on 10/27/17 0237 Hydrocodone/Acetaminophen (Hydrocodone/Acetaminophen 5 MG/325 MG TAB) 1 Each Tablet, 1 EACH PO Q6H PRN for PAIN-MODERATE Prescribed by: STEPHANIE MENJIVAR on 03/21/18 1716 Ibuprofen (Ibuprofen) 200 Mg Tablet, 600 MG PO DAILY PRN for PAIN-MILD, (Reported) Entered as Reported by: KAROLINA VILLA on 08/11/16 1431 Ibuprofen (Ibuprofen) 600 Mg Tablet, 600 MG PO Q6H PRN for PAIN-MILD Prescribed by: CHAPARRO GREGORY on 09/17/22 1329 Lisinopril (Lisinopril) 10 Mg Tablet, 10 MG PO DAILY Prescribed by: Mohini Medina on 08/28/222137 Methocarbamol (Methocarbamol) 750 Mg Tablet, 1,500 MG PO Q8H Prescribed by: ZULLY SYED on 08/20/22 160 Methocarbamol (Methocarbamol) 750 Mg Tablet, 750 MG PO Q6-8HR Prescribed by: Mohini Medina on 08/28/222137 Methylprednisolone (Methylprednisolone Dose Pack) 4 Mg Tab.ds.pk, 4 MG PO UD Prescribed by: Mohini Medina on 08/28/222137 Naproxen (Naproxen) 500 Mg Tablet.dr, 500 MG PO BID PRN for PAIN Prescribed by: ZULLY SYED on 08/20/22 160 Prednisone (Prednisone) 10 Mg Tab.ds.pk, 30 MG PO DAILY Prescribed by: SHIRA KAISER on 08/13/16 1101 Prednisone (Prednisone) 20 Mg Tab, 60 MG PO DAILY Prescribed by: MEGHAN AREVALO on 07/06/17 1337 Review of Systems Constitutional: No fever EENTM: no symptoms reported Respiratory: no symptoms reported Cardiovascular: no symptoms reported Gastrointestinal: no symptoms reported Genitourinary: no symptoms reported Musculoskeletal: see HPI Skin: no symptoms reported Psychiatric/Neurological: No Symptoms Reported Past Mybkgnx-Vjuiyc-Bivobm Hx Patient Social History Tobacco Use?: Yes Tobacco type used: Cigarettes Smoking Status: Current Everyday Smoker Use of E-Cig and/or Vaping dev: No Substance use?: Yes Substance type: Marijuana Substance frequency: Daily Alcohol Use?: No Pt feels they are or have been: No Immunizations Up To Date Tetanus Booster (TDap): Unknown Influenza Vaccine Up-to-Date: No; Not Current First/Initial COVID19 Vaccinat: DENIES Seasonal Allergies Seasonal Allergies: No Past Medical History Surgery/Hospitalization HX: HTN DENIES SURGERIES Surgeries: No Respiratory: Yes Chronic Bronchitis Currently Using CPAP: No Currently Using BIPAP: No Cardiac: Yes Neurological: No Reproductive Disorders: No Genitourinary: Yes Kidney Stones Gastrointestinal: Yes Gastroesophageal Reflux Musculoskeletal: Yes (BACK INJURY & BILATERAL CLAVICLE FXS IN 5TH GRADE-FELL OFF MONKEY BARS) Fractures Endocrine: No HEENT: Yes (tonsil abscess current 08/11/16) Cancer: No Psychosocial: Yes Depression Integumentary: Yes Blood Disorders: No Adverse Reaction/Blood Tranf: No Family Medical History Family history: Thyroid disorder 09 SISTER No Pertinent Family Hx Physical Exam Vital Signs Vital Signs - First Documented 09/17/22 12:42 Temp 36.6 Pulse 120 Resp 16 B/P (MAP) 113/104 (107) Pulse Ox 96 O2 Delivery Room Air Capillary Refill : Height, Weight, BMI Height: 5'8.00" Weight: 185lbs. 7.0oz. 83.474667il; 25.00 BMI Method:Stated General Appearance: No Apparent Distress, WD/WN HEENT: PERRL/EOMI, Normal ENT Inspection, Pharynx Normal Neck: Full Range of Motion, Normal Inspection, Non Tender, Supple Cardiovascular: Regular Rate, Rhythm, No Edema, Normal Peripheral Pulses Respiratory: Chest Non Tender, Lungs Clear, Normal Breath Sounds, No Accessory Muscle Use, No Respiratory Distress Gastrointestinal: Normal Bowel Sounds, Non Tender, Soft Back: Normal Inspection, No CVA Tenderness, No Vertebral Tenderness Extremity: Normal Capillary Refill, Normal Inspection, Normal Range of Motion, No Calf Tenderness, No Pedal Edema, Other (Left lateral hip tenderness along the greater troch, no pain with logroll, negative straight leg raise) Neurologic/Psychiatric: Alert, No Motor/Sensory Deficits, Normal Mood/Affect Skin: Normal Color, Warm/Dry Progress/Results/Core Measures Results/Orders My Orders Orders - CHAPARRO GREGORY MD Pelvis With Left Hip 2-3 Views (09/17/22 12:49) Ketorolac Injection (Ketorolac Injection (09/17/22 13:00) Acetaminophen Tablet (Acetaminophen Ta (09/17/22 13:00) Cyclobenzaprine Tablet (Cyclobenzaprine (09/17/22 12:49) Medications Given in ED Current Medications Medications Dose Ordered Sig/Enedina Route Start Time Stop Time Status Last Admin Dose Admin Acetaminophen 1,000 mg ONCE ONCE PO 09/17/22 13:00 09/17/22 13:01 DC 09/17/22 12:56 1,000 MG Ketorolac Tromethamine 15 mg ONCE ONCE IM 09/17/22 13:00 09/17/22 13:01 DC 09/17/22 12:57 15 MG Vital Signs/I&O 09/17/22 12:42 Temp 36.6 Pulse 120 Resp 16 B/P (MAP) 113/104 (107) Pulse Ox 96 O2 Delivery Room Air Progress Progress Note : Progress Note 46-year-old male presenting for left lateral hip pain. ABCs were intact and vitals were stable on presentation. Physical exam with left lateral hip tenderness along the greater trochanter. He has no neurologic findings and no red flags otherwise. He ambulated into the ER without difficulty. Pain is over the greater troches on the left lateral hip consistent with trochanteric pain syndrome. Given IM Toradol here with good relief of symptoms. X-ray of the pelvis and left hip ordered and interpreted by me showing no fracture or dislocation, no significant arthritic changes. I will have him follow-up with orthopedics as an outpatient. I believe he stable for discharge with outpatient follow-up, he was sent home with strict return precautions. Diagnostic Imaging Diagonstic Imaging: Xray (pelvis and left hip) Comments NAME: KHOI DOYLE [facility] REC#: [id number] PT STATUS: REG ER : 1975 PHYSICIAN: CHAPARRO GREGORY MD ADMIT DATE: 09/17/22/ER Draft Date of Exam:09/17/22 PELVIS WITH LEFT HIP 2-3 VIEWS Indication: Left hip pain AP view pelvis and 2 views of left hip are obtained. Pelvic and obturator rings are intact. Left hip appears to be intact. IMPRESSION: Unremarkable pelvis and left hip. Dictated on workstation # [id number] Dict: 09/17/22 1314 Trans: 09/17/22 1322 [facility] [id number] Interpreted by: JUNI FITZGERALD MD Electronically signed by: Departure Impression Primary Impression: Bursitis of hip, right Qualified Codes: M70.61 - Trochanteric bursitis, right hip Disposition: 01 HOME, SELF-CARE Condition: Stable Departure-Patient Inst. Decision time for Depature: 13:40 Referrals: NO,LOCAL PHYSICIAN (PCP) Primary Care Physician ESTIVEN LOCKWOOD MD Patient Instructions: Hip Bursitis (DC) Add. Discharge Instructions: Please follow-up with orthopedics here in town, the number is in the paperwork. Take the prescription ibuprofen and the muscle relaxer as needed. You can also use a heating pad or ice, whichever feels better. Scripts Ibuprofen (Ibuprofen) 600 Mg Tablet 600 MG PO Q6H PRN for PAIN-MILD for 7 Days, #28 TAB Prov: CHAPARRO GREGORY MD 09/17/22 Cyclobenzaprine HCl (Cyclobenzaprine HCl) 10 Mg Tablet 10 MG PO Q8H for 5 Days, #15 TAB Prov: CHAPARRO GREGORY MD 09/17/22 Work/School Note: Work Release Form Date Seen in the Emergency Department: A 2022 Return to Work: Sep 18, 2022 Restrictions: No Restrictions CHAPARRO GREGORY MD Sep 17, 2022 12:51
[2022-09-17] MEDS ORDERED: ACETAMINOPHEN 500 MG TABLET PO ONE (13:00)
[2022-09-17] MEDS ORDERED: KETOROLAC INJ 30 MG/ML VIAL IM ONE (13:00)
--- NOTE | 2022-09-17 13:24 | Diagnostic Imaging Report ---
Indication: Left hip pain AP view pelvis and 2 views of left hip are obtained. Pelvic and obturator rings are intact. Left hip appears to be intact. IMPRESSION: Unremarkable pelvis and left hip. Dictated by: Dictated on workstation # [id number]
[2022-09-17] MEDS ORDERED: CYCL10TA25 PO (13:29)
[2022-09-17] MEDS ORDERED: IBUP-1773 PO (13:29)
[2022-09-17 13:49] VITALS: BP 144/106
== END 2022-09-17 13:49 | disposition home or self-care (01) ==
LOC: EDUNIT# 12:34 → ER 12:35
DX: M70.72 Other bursitis of hip, left hip (principal); F17.210 Nicotine dependence, cigarettes, uncomplicated